=== PATIENT | female | born 1940 | race African-American/Black ===

== ENCOUNTER 2020-06-22 10:29 | Inpatient (IN) | payer MEDICARE, OTHER ==
[~2020-06-22] VITALS: Ht 149.9 cm; Wt 83.0 kg
[~2020-06-22 10:29] MED LIST: AMLO2.5T45 PO; ATOR40TA70 PO; COR3 PO; LOSA25TA26 PO; MELO-106 PO; RANI150T7 PO
[2020-06-22] MEDS ORDERED: AZITHROMYCIN 500 MG TABLET PO NR (11:45)
[2020-06-22] MEDS ORDERED: DEXAMETHASONE 4MG TABLET PO NR (11:45)
[2020-06-22 12:30] LABS: CHLORIDE 98 mEq/L (98-107)
[2020-06-22 12:31] LABS: BASOPHILS % 0.1 % (0.0-2.0); HEMATOCRIT. 36.5 % (36.0-48.0); HEMOGLOBIN. 12.8 g/dL (12.0-16.0); LYMPHOCYTES % 12.7 % (20.0-50.0); MEAN CORPUSCULAR HEMOGLOBIN 34.1 pg (28.0-32.0); MEAN CORPUSCULAR VOLUME 97.2 fL (81.0-99.0); MEAN PLATELET VOLUME 7.4 fl (7.4-10.4); MONOCYTES % 9.8 % (2.0-8.0); NEUTROPHILS % 77.4 % (40.0-76.0); PLATELET 207 x1000/uL (130-400); RED BLOOD CELL COUNT 3.75 mill/uL (4.2-5.4); RED CELL DISTRIBUTION WIDTH 15.4 % (11.6-14.6)
[2020-06-22 12:34] LABS: PROTHROMBIN TIME 10.9 sec (9.6-11.0)
[2020-06-23] MEDS ORDERED: DOCUSATE SODIUM 100MG CAPSULE PO PRN (01:15)
[2020-06-23] MEDS ORDERED: GUAIFENESIN 200MG/10ML SUGAR FREE UDC PO PRN (01:15)
[2020-06-23] MEDS ORDERED: ONDANSETRON HCL 4MG/2ML INJ IV PRN (01:15)
[2020-06-23] MEDS ORDERED: ACETAMINOPHEN 325MG TABLET PO PRN (01:15)
[2020-06-23] MEDS: IPRATROPIUM/ALBUTEROL 0.5-3(2.5)MG/3ML NEB HHN SCH ×4 (04:00→16:00)
[2020-06-23] MEDS: DEXT 5%/0.45% NACL 1000ML 1,000 ML IV SCH (04:00)
[2020-06-23] MEDS ORDERED: CEFTRIAXONE 1 G PREMIX 50 ML IV SCH (05:00)
[2020-06-23] MEDS: LEVOFLOXACIN 500MG PREMIX 100 ML IV SCH (08:00)
[2020-06-23] MEDS: METHYLPREDNISOLONE SOD SUCC 40 MG/ML VIAL IV SCH ×2 (08:00→14:30)
[2020-06-23] MEDS ORDERED: FUROSEMIDE 20MG TABLET PO SCH (09:00)
[2020-06-23] MEDS: ERGOCALCIFEROL 50000UNITS CAPSULE PO SCH (09:00)
[2020-06-23] MEDS: POTASSIUM CHLORIDE 10MEQ TABLET SR PO SCH ×2 (09:00→17:00)
[2020-06-23] MEDS: CARVEDILOL 3.125 MG TABLET PO SCH ×2 (09:00→21:00)
[2020-06-23] MEDS: ENOXAPARIN 30MG/0.3ML SYR SUBCUT SCH (09:00)
[2020-06-23] MEDS: ASCORBIC ACID 500 MG TABLET PO SCH (09:00)
[2020-06-23] MEDS: AMLODIPINE 5MG TABLET PO SCH (09:00)
[2020-06-23] MEDS: LOSARTAN POTASSIUM 25 MG TABLET PO SCH (10:00)
[2020-06-23] MEDS: MONTELUKAST SODIUM 10MG TABLET PO SCH (17:00)
[2020-06-23] MEDS: DIGOXIN 125MCG TABLET PO SCH (18:00)
[2020-06-23] MEDS ORDERED: ATORVASTATIN CALCIUM 40MG TABLET PO SCH (21:00)
[2020-06-24] MEDS: METHYLPREDNISOLONE SOD SUCC 40 MG/ML VIAL IV SCH ×4 (01:21→23:12)
[2020-06-24] MEDS: ASCORBIC ACID 500 MG TABLET PO SCH ×3 (01:21→23:09)
[2020-06-24 03:17] VITALS: BP 120/66
[2020-06-24 04:00] VITALS: BP 133/66
[2020-06-24 07:36] LABS: BG CARBOXYHEMOGLOBIN 0.3 % (0.5-1.5); BG DEOXYHEMOGLOBIN 9.6 % (0.0-5.0); BG FRACTION INSPIRED OXYGEN 36; BG HCO3 ACT 25.5 mmol/L (22.0-26.0); BG METHEMOGLOBIN 0.1 % (0.0-1.5); BG OXYGEN SATURATION 90.4 % (92.0-98.5); BG PCO2 32.5 mmHg (35.0-45.0); BG PH 7.513 (7.350-7.450); BG PO2 58.5 mmHg (75.0-100.0); BG SAMPLE SITE RIGHT RADIAL; BG TOTAL HEMOGLOBIN 12.8 g/dL (12.0-18.0); BG VENT MODE NASAL CANNULA
[2020-06-24 07:51] LABS: CHLORIDE 105 mEq/L (98-107)
[2020-06-24 08:00] VITALS: BP 115/61
[2020-06-24 08:00] LABS: BASOPHILS % 0.2 % (0.0-2.0); HEMATOCRIT. 36.5 % (36.0-48.0); HEMOGLOBIN. 12.6 g/dL (12.0-16.0); LYMPHOCYTES % 8.2 % (20.0-50.0); MEAN CORPUSCULAR HEMOGLOBIN 33.9 pg (28.0-32.0); MEAN CORPUSCULAR VOLUME 98.1 fL (81.0-99.0); MEAN PLATELET VOLUME 7.8 fl (7.4-10.4); MONOCYTES % 8.1 % (2.0-8.0); NEUTROPHILS % 83.5 % (40.0-76.0); PLATELET 261 x1000/uL (130-400); RED BLOOD CELL COUNT 3.72 mill/uL (4.2-5.4); RED CELL DISTRIBUTION WIDTH 15.3 % (11.6-14.6)
[2020-06-24 08:04] LABS: LDL CHOLESTEROL 137 mg/dL (5-100)
[2020-06-24 08:05] LABS: HDL CHOLESTEROL 73 mg/dL (40-59)
[2020-06-24 08:08] LABS: T4 FREE 1.14 ng/dL (0.76-1.46)
[2020-06-24] MEDS: AMLODIPINE 5MG TABLET PO SCH (09:00)
[2020-06-24] MEDS: POTASSIUM CHLORIDE 10MEQ TABLET SR PO SCH ×2 (09:42→17:00)
[2020-06-24] MEDS: LOSARTAN POTASSIUM 25 MG TABLET PO SCH (09:42)
[2020-06-24] MEDS: CARVEDILOL 3.125 MG TABLET PO SCH ×2 (09:42→23:10)
[2020-06-24] MEDS ORDERED: FUROSEMIDE 40MG TABLET PO NR (09:45)
[2020-06-24] MEDS: OMEPRAZOLE 20MG CAPSULE EXTENDED RELEASE PO SCH ×2 (10:55→11:00)
[2020-06-24] MEDS: ENOXAPARIN 30MG/0.3ML SYR SUBCUT SCH (10:55)
[2020-06-24] MEDS: MAGNESIUM/ALUMINUM HYDROXIDE/SIMETHICONE 30ML UDC PO PRN (10:55)
[2020-06-24] MEDS ORDERED: CEFTRIAXONE 1,000 MG in DEXTROSE 5% WATER 50 ML IV SCH (11:00)
[2020-06-24 12:00] VITALS: BP 111/54
[2020-06-24] MEDS: DOXYCYCLINE HYCLATE 100MG CAPSULE PO SCH ×2 (12:00→23:09)
[2020-06-24] MEDS ORDERED: LEVOFLOXACIN 500MG PREMIX 100 ML IV SCH (12:00)
[2020-06-24] MEDS: DEXT 5%/0.45% NACL 1000ML 1,000 ML IV SCH (15:49)
[2020-06-24] MEDS: LEVOFLOXACIN 500MG PREMIX 100 ML IV SCH (15:49)
[2020-06-24 16:00] VITALS: BP 105/49
[2020-06-24] MEDS: MONTELUKAST SODIUM 10MG TABLET PO SCH (17:00)
[2020-06-24] MEDS: DIGOXIN 125MCG TABLET PO SCH (18:00)
[2020-06-24 20:00] VITALS: BP 129/58
[2020-06-25] VITALS: BP 127/55
[2020-06-25 04:00] VITALS: BP 132/46
[2020-06-25] MEDS: OMEPRAZOLE 20MG CAPSULE EXTENDED RELEASE PO SCH (07:27)
[2020-06-25] MEDS: METHYLPREDNISOLONE SOD SUCC 40 MG/ML VIAL IV SCH ×3 (07:27→23:41)
[2020-06-25 08:00] VITALS: BP 93/58
[2020-06-25] MEDS: LOSARTAN POTASSIUM 25 MG TABLET PO SCH (09:00)
[2020-06-25] MEDS: CARVEDILOL 3.125 MG TABLET PO SCH ×2 (09:00→23:40)
[2020-06-25] MEDS: AMLODIPINE 5MG TABLET PO SCH (09:00)
[2020-06-25] MEDS: DOXYCYCLINE HYCLATE 100MG CAPSULE PO SCH ×2 (09:15→23:40)
[2020-06-25] MEDS: ASCORBIC ACID 500 MG TABLET PO SCH ×2 (09:15→23:41)
[2020-06-25] MEDS: DEXT 5%/0.45% NACL 1000ML 1,000 ML IV SCH ×3 (09:15→16:47)
[2020-06-25] MEDS: ENOXAPARIN 30MG/0.3ML SYR SUBCUT SCH (09:15)
[2020-06-25] MEDS: FUROSEMIDE 20MG TABLET PO SCH (09:26)
[2020-06-25] MEDS: POTASSIUM CHLORIDE 10MEQ TABLET SR PO SCH (09:27)
[2020-06-25 12:00] VITALS: BP 138/45
[2020-06-25 13:24] LABS: HEMATOCRIT. 37.3 % (36.0-48.0); HEMOGLOBIN. 12.5 g/dL (12.0-16.0); MEAN CORPUSCULAR HEMOGLOBIN 33.1 pg (28.0-32.0); MEAN CORPUSCULAR VOLUME 98.7 fL (81.0-99.0); MEAN PLATELET VOLUME 7.6 fl (7.4-10.4); PLATELET 246 x1000/uL (130-400); RED BLOOD CELL COUNT 3.78 mill/uL (4.2-5.4); RED CELL DISTRIBUTION WIDTH 14.9 % (11.6-14.6)
[2020-06-25 13:34] LABS: CHLORIDE 104 mEq/L (98-107)
[2020-06-25 16:00] VITALS: BP 128/57
[2020-06-25] MEDS: MONTELUKAST SODIUM 10MG TABLET PO SCH (16:50)
[2020-06-25] MEDS: DIGOXIN 125MCG TABLET PO SCH (17:01)
[2020-06-25 17:26] LABS: PLATELET ESTIMATE NORMAL
[2020-06-25 20:00] VITALS: BP 146/63
[2020-06-25] MEDS: ATORVASTATIN CALCIUM 40MG TABLET PO SCH (23:41)
[2020-06-26] VITALS: BP 112/33
[2020-06-26 04:00] VITALS: BP 124/51
[2020-06-26] MEDS: DEXT 5%/0.45% NACL 1000ML 1,000 ML IV SCH ×3 (06:48→21:07)
[2020-06-26] MEDS: FAMOTIDINE 20MG TABLET PO SCH (06:48)
[2020-06-26] MEDS: METHYLPREDNISOLONE SOD SUCC 40 MG/ML VIAL IV SCH ×3 (06:48→21:07)
[2020-06-26 07:32] LABS: BASOPHILS % 0.2 % (0.0-2.0); HEMATOCRIT. 33.1 % (36.0-48.0); HEMOGLOBIN. 11.3 g/dL (12.0-16.0); LYMPHOCYTES % 7.4 % (20.0-50.0); MEAN CORPUSCULAR HEMOGLOBIN 33.3 pg (28.0-32.0); MEAN CORPUSCULAR VOLUME 97.5 fL (81.0-99.0); MEAN PLATELET VOLUME 7.7 fl (7.4-10.4); MONOCYTES % 7.1 % (2.0-8.0); NEUTROPHILS % 85.3 % (40.0-76.0); PLATELET 237 x1000/uL (130-400); RED BLOOD CELL COUNT 3.39 mill/uL (4.2-5.4); RED CELL DISTRIBUTION WIDTH 14.6 % (11.6-14.6)
[2020-06-26 07:44] LABS: CHLORIDE 107 mEq/L (98-107)
[2020-06-26 08:00] VITALS: BP 124/40
[2020-06-26] MEDS: POTASSIUM CHLORIDE 10MEQ TABLET SR PO SCH (08:56)
[2020-06-26] MEDS: ENOXAPARIN 40MG/0.4ML SYR SUBCUT SCH (08:56)
[2020-06-26] MEDS: DOXYCYCLINE HYCLATE 100MG CAPSULE PO SCH ×2 (08:57→21:07)
[2020-06-26] MEDS: ASCORBIC ACID 500 MG TABLET PO SCH ×2 (08:57→21:07)
[2020-06-26] MEDS: LOSARTAN POTASSIUM 25 MG TABLET PO SCH (08:57)
[2020-06-26] MEDS: CARVEDILOL 3.125 MG TABLET PO SCH ×2 (08:57→21:00)
[2020-06-26] MEDS: AMLODIPINE 5MG TABLET PO SCH (08:57)
[2020-06-26] MEDS: FUROSEMIDE 20MG TABLET PO SCH (08:57)
[2020-06-26 12:00] VITALS: BP 117/48
[2020-06-26 16:00] VITALS: BP 127/61
[2020-06-26] MEDS: MONTELUKAST SODIUM 10MG TABLET PO SCH (16:16)
[2020-06-26] MEDS: DIGOXIN 125MCG TABLET PO SCH (17:01)
[2020-06-26 20:00] VITALS: BP 117/46
[2020-06-26] MEDS: ATORVASTATIN CALCIUM 40MG TABLET PO SCH (21:07)
[2020-06-26] MEDS: MAGNESIUM/ALUMINUM HYDROXIDE/SIMETHICONE 30ML UDC PO PRN (23:22)
[2020-06-26] MEDS: ALBUTEROL 6.7GM HFA INHALER ORI SCH (23:48)
[2020-06-27 00:27] VITALS: BP 123/46
[2020-06-27 04:00] VITALS: BP 129/47
[2020-06-27] MEDS: ALBUTEROL 6.7GM HFA INHALER ORI SCH ×4 (04:33→21:42)
[2020-06-27] MEDS: FAMOTIDINE 20MG TABLET PO SCH (05:55)
[2020-06-27] MEDS: METHYLPREDNISOLONE SOD SUCC 40 MG/ML VIAL IV SCH ×3 (05:55→21:43)
[2020-06-27 08:00] VITALS: BP 134/69
[2020-06-27] MEDS: DEXT 5%/0.45% NACL 1000ML 1,000 ML IV SCH ×2 (08:53→18:09)
[2020-06-27] MEDS: ENOXAPARIN 40MG/0.4ML SYR SUBCUT SCH (08:54)
[2020-06-27] MEDS: ASCORBIC ACID 500 MG TABLET PO SCH ×2 (08:54→21:43)
[2020-06-27] MEDS: LOSARTAN POTASSIUM 25 MG TABLET PO SCH (08:54)
[2020-06-27] MEDS: AMLODIPINE 5MG TABLET PO SCH (08:54)
[2020-06-27] MEDS: FUROSEMIDE 20MG TABLET PO SCH (08:54)
[2020-06-27] MEDS: DOXYCYCLINE HYCLATE 100MG CAPSULE PO SCH ×2 (08:54→21:43)
[2020-06-27] MEDS: CARVEDILOL 3.125 MG TABLET PO SCH ×2 (08:55→21:43)
[2020-06-27] MEDS: POTASSIUM CHLORIDE 10MEQ TABLET SR PO SCH (08:55)
[2020-06-27 09:57] LABS: HEMOGLOBIN. 13.1 g/dL (12.0-16.0); MEAN CORPUSCULAR HEMOGLOBIN 33.9 pg (28.0-32.0); MEAN CORPUSCULAR VOLUME 97.9 fL (81.0-99.0); MEAN PLATELET VOLUME 7.5 fl (7.4-10.4); PLATELET 273 x1000/uL (130-400); RED BLOOD CELL COUNT 3.88 mill/uL (4.2-5.4); RED CELL DISTRIBUTION WIDTH 14.8 % (11.6-14.6)
[2020-06-27 10:32] LABS: CHLORIDE 109 mEq/L (98-107)
[2020-06-27 12:00] VITALS: BP 125/56
[2020-06-27 16:00] VITALS: BP 102/46
[2020-06-27] MEDS: MONTELUKAST SODIUM 10MG TABLET PO SCH (16:26)
[2020-06-27] MEDS: BETHANECHOL CHLORIDE 25 MG TABLET PO SCH ×2 (16:28→17:02)
[2020-06-27] MEDS: GUAIFENESIN-DM 200MG-20MG/10ML UDC PO PRN ×2 (16:35→23:34)
[2020-06-27] MEDS: DIGOXIN 125MCG TABLET PO SCH (17:01)
[2020-06-27 20:00] VITALS: BP 127/53
[2020-06-27 21:29] LABS: CLARITY URINE CLEAR (CLEAR); COLOR URINE YELLOW (YELLOW); KETONES URINE NEGATIVE (NEGATIVE); LEUKOCYTE ESTERASE URINE NEGATIVE (NEGATIVE); NITRITE URINE NEGATIVE (NEGATIVE); OCCULT BLOOD URINE NEGATIVE (NEGATIVE); PH URINE 5.5 (4.5-8.0); PROTEIN URINE NEGATIVE (NEGATIVE); SPECIFIC GRAVITY URINE 1.009 (1.005-1.030); UROBILINOGEN URINE 0.2 E.U./dL (0.2-1.0)
[2020-06-27] MEDS: ATORVASTATIN CALCIUM 40MG TABLET PO SCH (21:43)
[2020-06-27 23:43] LABS: PLATELET ESTIMATE NORMAL
[2020-06-28] VITALS: BP 118/52
[2020-06-28] MEDS: ALBUTEROL 6.7GM HFA INHALER ORI SCH ×6 (01:17→21:28)
[2020-06-28] MEDS: DEXT 5%/0.45% NACL 1000ML 1,000 ML IV SCH ×2 (04:39→15:21)
[2020-06-28 06:00] VITALS: BP 135/52
[2020-06-28] MEDS: FAMOTIDINE 20MG TABLET PO SCH (07:02)
[2020-06-28] MEDS: METHYLPREDNISOLONE SOD SUCC 40 MG/ML VIAL IV SCH ×3 (07:02→21:27)
[2020-06-28 07:34] LABS: CHLORIDE 106 mEq/L (98-107)
[2020-06-28 07:57] LABS: HEMATOCRIT. 35.9 % (36.0-48.0); HEMOGLOBIN. 12.5 g/dL (12.0-16.0); MEAN CORPUSCULAR HEMOGLOBIN 33.6 pg (28.0-32.0); MEAN CORPUSCULAR VOLUME 96.8 fL (81.0-99.0); MEAN PLATELET VOLUME 7.3 fl (7.4-10.4); PLATELET 257 x1000/uL (130-400); RED BLOOD CELL COUNT 3.71 mill/uL (4.2-5.4); RED CELL DISTRIBUTION WIDTH 14.8 % (11.6-14.6)
[2020-06-28 08:00] VITALS: BP 124/74
[2020-06-28 09:10] LABS: ANGIOTENSION CONVERTING ENZYME 20 U/L (14-82)
[2020-06-28] MEDS: LOSARTAN POTASSIUM 25 MG TABLET PO SCH (09:51)
[2020-06-28] MEDS: AMLODIPINE 5MG TABLET PO SCH (09:51)
[2020-06-28] MEDS: FUROSEMIDE 20MG TABLET PO SCH (09:51)
[2020-06-28] MEDS: POTASSIUM CHLORIDE 10MEQ TABLET SR PO SCH (09:51)
[2020-06-28] MEDS: DOXYCYCLINE HYCLATE 100MG CAPSULE PO SCH ×2 (09:52→21:27)
[2020-06-28] MEDS: CARVEDILOL 3.125 MG TABLET PO SCH ×2 (09:52→21:27)
[2020-06-28] MEDS: BETHANECHOL CHLORIDE 25 MG TABLET PO SCH ×3 (09:52→18:42)
[2020-06-28 12:00] VITALS: BP 122/55
[2020-06-28] MEDS: ENOXAPARIN 40MG/0.4ML SYR SUBCUT SCH (12:40)
[2020-06-28] MEDS: GUAIFENESIN-DM 200MG-20MG/10ML UDC PO PRN (12:40)
[2020-06-28 15:06] LABS: PLATELET ESTIMATE NORMAL
[2020-06-28] MEDS: ASCORBIC ACID 500 MG TABLET PO SCH ×2 (15:18→21:27)
[2020-06-28 16:00] VITALS: BP 128/51
[2020-06-28] MEDS: DIGOXIN 125MCG TABLET PO SCH (18:42)
[2020-06-28] MEDS: MONTELUKAST SODIUM 10MG TABLET PO SCH (18:42)
[2020-06-28 20:00] VITALS: BP 124/47
[2020-06-28] MEDS: ATORVASTATIN CALCIUM 40MG TABLET PO SCH (21:27)
[2020-06-29] VITALS: BP 130/55
[2020-06-29] MEDS: DEXT 5%/0.45% NACL 1000ML 1,000 ML IV SCH ×3 (01:12→22:14)
[2020-06-29 04:00] VITALS: BP 108/51
[2020-06-29 04:07] LABS: ANTI-CARDIOLIPIN AB IGG < 9 GPL U/mL (0-14); ANTI-CARDIOLIPIN AB IGM < 9 MPL U/mL (0-12)
[2020-06-29] MEDS: ALBUTEROL 6.7GM HFA INHALER ORI SCH ×6 (05:19→21:46)
[2020-06-29] MEDS: FAMOTIDINE 20MG TABLET PO SCH (06:10)
[2020-06-29] MEDS: METHYLPREDNISOLONE SOD SUCC 40 MG/ML VIAL IV SCH ×3 (06:10→22:14)
[2020-06-29] MEDS: BETHANECHOL CHLORIDE 25 MG TABLET PO SCH (06:17)
[2020-06-29 07:36] LABS: CHLORIDE 109 mEq/L (98-107)
[2020-06-29 07:41] LABS: HEMATOCRIT. 40.9 % (36.0-48.0); HEMOGLOBIN. 13.9 g/dL (12.0-16.0); MEAN CORPUSCULAR HEMOGLOBIN 33.9 pg (28.0-32.0); MEAN CORPUSCULAR VOLUME 99.8 fL (81.0-99.0); MEAN PLATELET VOLUME 7.8 fl (7.4-10.4); PLATELET 249 x1000/uL (130-400); RED CELL DISTRIBUTION WIDTH 14.9 % (11.6-14.6)
[2020-06-29 08:00] VITALS: BP 148/66
[2020-06-29] MEDS: ENOXAPARIN 40MG/0.4ML SYR SUBCUT SCH (09:26)
[2020-06-29] MEDS: POTASSIUM CHLORIDE 10MEQ TABLET SR PO SCH (09:27)
[2020-06-29] MEDS: ASCORBIC ACID 500 MG TABLET PO SCH ×2 (09:27→21:49)
[2020-06-29] MEDS: FUROSEMIDE 20MG TABLET PO SCH (09:27)
[2020-06-29] MEDS: AMLODIPINE 5MG TABLET PO SCH (09:28)
[2020-06-29] MEDS: DOXYCYCLINE HYCLATE 100MG CAPSULE PO SCH ×2 (09:28→21:48)
[2020-06-29] MEDS: LOSARTAN POTASSIUM 25 MG TABLET PO SCH (09:28)
[2020-06-29] MEDS: CARVEDILOL 3.125 MG TABLET PO SCH ×2 (09:28→21:48)
[2020-06-29 12:00] VITALS: BP_SYST 107; BP_SYST 134; BP_SYST 140; BP_DIAS 48; BP_DIAS 51; BP_DIAS 61
[2020-06-29] MEDS ORDERED: VISCOUS LIDOCAINE 2% 15 ML UDC MM PRN (16:30)
[2020-06-29] MEDS: MONTELUKAST SODIUM 10MG TABLET PO SCH (17:55)
[2020-06-29] MEDS: DIGOXIN 125MCG TABLET PO SCH (17:55)
[2020-06-29 19:59] LABS: PLATELET ESTIMATE NORMAL
[2020-06-29 20:00] VITALS: BP 112/52
[2020-06-29] MEDS: ATORVASTATIN CALCIUM 40MG TABLET PO SCH (21:49)
[2020-06-29] MEDS: ACYCLOVIR 400 MG TABLET PO SCH (22:15)
[2020-06-30] VITALS: BP 109/51
[2020-06-30] MEDS: ALBUTEROL 6.7GM HFA INHALER ORI SCH ×7 (00:09→22:47)
[2020-06-30] MEDS: DEXT 5%/0.45% NACL 1000ML 1,000 ML IV SCH ×2 (00:09→12:12)
[2020-06-30 04:00] VITALS: BP 108/49
[2020-06-30] MEDS: ACYCLOVIR 400 MG TABLET PO SCH ×4 (05:23→17:16)
[2020-06-30] MEDS: METHYLPREDNISOLONE SOD SUCC 40 MG/ML VIAL IV SCH ×3 (05:23→22:48)
[2020-06-30] MEDS: FAMOTIDINE 20MG TABLET PO SCH (05:23)
[2020-06-30] MEDS: BETHANECHOL CHLORIDE 25 MG TABLET PO SCH (05:23)
[2020-06-30 08:00] VITALS: BP 124/52
[2020-06-30] MEDS: ASCORBIC ACID 500 MG TABLET PO SCH ×2 (08:33→22:49)
[2020-06-30] MEDS: AMLODIPINE 5MG TABLET PO SCH (08:33)
[2020-06-30] MEDS: DOXYCYCLINE HYCLATE 100MG CAPSULE PO SCH ×2 (08:34→22:49)
[2020-06-30] MEDS: LOSARTAN POTASSIUM 25 MG TABLET PO SCH (08:34)
[2020-06-30] MEDS: FUROSEMIDE 20MG TABLET PO SCH (08:34)
[2020-06-30] MEDS: POTASSIUM CHLORIDE 10MEQ TABLET SR PO SCH (08:34)
[2020-06-30] MEDS: CARVEDILOL 3.125 MG TABLET PO SCH ×2 (08:34→22:48)
[2020-06-30] MEDS: ENOXAPARIN 40MG/0.4ML SYR SUBCUT SCH (08:35)
[2020-06-30] MEDS: ERGOCALCIFEROL 50000UNITS CAPSULE PO SCH (08:38)
[2020-06-30 12:00] VITALS: BP 128/50
[2020-06-30] MEDS: MONTELUKAST SODIUM 10MG TABLET PO SCH (16:36)
[2020-06-30] MEDS: DIGOXIN 125MCG TABLET PO SCH (17:16)
[2020-06-30 20:00] VITALS: BP 129/56
[2020-06-30] MEDS: ATORVASTATIN CALCIUM 40MG TABLET PO SCH (22:49)
[2020-07-01 00:08] VITALS: BP 132/58
[2020-07-01] MEDS: DEXT 5%/0.45% NACL 1000ML 1,000 ML IV SCH ×2 (01:42→13:59)
[2020-07-01 04:00] VITALS: BP 126/41
[2020-07-01] MEDS: ALBUTEROL 6.7GM HFA INHALER ORI SCH ×6 (04:00→20:11)
[2020-07-01] MEDS: ACYCLOVIR 400 MG TABLET PO SCH ×5 (06:25→21:19)
[2020-07-01] MEDS: METHYLPREDNISOLONE SOD SUCC 40 MG/ML VIAL IV SCH ×3 (06:25→21:19)
[2020-07-01] MEDS: BETHANECHOL CHLORIDE 25 MG TABLET PO SCH (06:26)
[2020-07-01] MEDS: FAMOTIDINE 20MG TABLET PO SCH (06:26)
[2020-07-01 07:59] VITALS: BP 132/42
[2020-07-01] MEDS: AMLODIPINE 5MG TABLET PO SCH (08:09)
[2020-07-01] MEDS: FUROSEMIDE 20MG TABLET PO SCH (08:09)
[2020-07-01] MEDS: CARVEDILOL 3.125 MG TABLET PO SCH ×2 (08:09→20:12)
[2020-07-01] MEDS: ENOXAPARIN 40MG/0.4ML SYR SUBCUT SCH (08:09)
[2020-07-01] MEDS: POTASSIUM CHLORIDE 10MEQ TABLET SR PO SCH (08:10)
[2020-07-01] MEDS: ASCORBIC ACID 500 MG TABLET PO SCH ×2 (08:10→20:11)
[2020-07-01] MEDS: LOSARTAN POTASSIUM 25 MG TABLET PO SCH (08:10)
[2020-07-01] MEDS: DOXYCYCLINE HYCLATE 100MG CAPSULE PO SCH (08:12)
[2020-07-01 12:00] VITALS: BP 124/55
[2020-07-01 16:00] VITALS: BP 122/44
[2020-07-01] MEDS: MONTELUKAST SODIUM 10MG TABLET PO SCH (16:48)
[2020-07-01] MEDS: DIGOXIN 125MCG TABLET PO SCH (17:11)
[2020-07-01 20:00] VITALS: BP 124/43
[2020-07-01] MEDS: ATORVASTATIN CALCIUM 40MG TABLET PO SCH (20:11)
[2020-07-02] VITALS: BP 122/51
[2020-07-02] MEDS: ALBUTEROL 6.7GM HFA INHALER ORI SCH ×6 (00:21→20:04)
[2020-07-02 04:00] VITALS: BP 156/65
[2020-07-02] MEDS: DEXT 5%/0.45% NACL 1000ML 1,000 ML IV SCH ×2 (04:05→18:36)
[2020-07-02] MEDS: METHYLPREDNISOLONE SOD SUCC 40 MG/ML VIAL IV SCH ×2 (05:54→14:48)
[2020-07-02] MEDS: ACYCLOVIR 400 MG TABLET PO SCH ×3 (05:54→14:48)
[2020-07-02] MEDS: FAMOTIDINE 20MG TABLET PO SCH (05:54)
[2020-07-02] MEDS: BETHANECHOL CHLORIDE 25 MG TABLET PO SCH (06:12)
[2020-07-02 08:00] VITALS: BP 126/47
[2020-07-02 08:32] LABS: HEMATOCRIT. 35.9 % (36.0-48.0); HEMOGLOBIN. 12.6 g/dL (12.0-16.0); MEAN CORPUSCULAR HEMOGLOBIN 33.8 pg (28.0-32.0); MEAN CORPUSCULAR VOLUME 96.8 fL (81.0-99.0); MEAN PLATELET VOLUME 7.6 fl (7.4-10.4); PLATELET 259 x1000/uL (130-400); RED BLOOD CELL COUNT 3.71 mill/uL (4.2-5.4); RED CELL DISTRIBUTION WIDTH 14.9 % (11.6-14.6)
[2020-07-02 09:03] LABS: CHLORIDE 105 mEq/L (98-107)
[2020-07-02] MEDS: AMLODIPINE 5MG TABLET PO SCH (09:51)
[2020-07-02] MEDS: ENOXAPARIN 40MG/0.4ML SYR SUBCUT SCH (09:51)
[2020-07-02] MEDS: LOSARTAN POTASSIUM 25 MG TABLET PO SCH (09:51)
[2020-07-02] MEDS: CARVEDILOL 3.125 MG TABLET PO SCH ×2 (09:51→20:29)
[2020-07-02] MEDS: POTASSIUM CHLORIDE 10MEQ TABLET SR PO SCH (09:51)
[2020-07-02] MEDS: FUROSEMIDE 20MG TABLET PO SCH (09:51)
[2020-07-02] MEDS: BENZONATATE 100MG CAPSULE PO SCH ×2 (11:55→18:31)
[2020-07-02] MEDS: ASCORBIC ACID 500 MG TABLET PO SCH ×2 (11:55→20:28)
[2020-07-02 12:00] VITALS: BP 136/61
[2020-07-02 14:28] LABS: PLATELET ESTIMATE NORMAL
[2020-07-02 16:00] VITALS: BP 153/64
[2020-07-02] MEDS: MONTELUKAST SODIUM 10MG TABLET PO SCH (18:31)
[2020-07-02] MEDS: DIGOXIN 125MCG TABLET PO SCH (18:32)
[2020-07-02 20:00] VITALS: BP 126/48
[2020-07-02] MEDS: ATORVASTATIN CALCIUM 40MG TABLET PO SCH (20:29)
[2020-07-03 00:01] VITALS: BP 110/52
[2020-07-03] MEDS: METHYLPREDNISOLONE SOD SUCC 40 MG/ML VIAL IV SCH ×4 (00:23→21:53)
[2020-07-03] MEDS: ALBUTEROL 6.7GM HFA INHALER ORI SCH ×6 (00:23→21:53)
[2020-07-03] MEDS: BENZONATATE 100MG CAPSULE PO SCH ×3 (03:10→17:52)
[2020-07-03 04:00] VITALS: BP 112/62
[2020-07-03] MEDS: BETHANECHOL CHLORIDE 25 MG TABLET PO SCH (06:07)
[2020-07-03] MEDS: DEXT 5%/0.45% NACL 1000ML 1,000 ML IV SCH (06:07)
[2020-07-03] MEDS: FAMOTIDINE 20MG TABLET PO SCH (06:09)
[2020-07-03 08:00] VITALS: BP 146/63
[2020-07-03] MEDS: ASCORBIC ACID 500 MG TABLET PO SCH ×2 (09:24→21:52)
[2020-07-03] MEDS: LOSARTAN POTASSIUM 25 MG TABLET PO SCH (09:25)
[2020-07-03] MEDS: POTASSIUM CHLORIDE 10MEQ TABLET SR PO SCH ×2 (09:25→21:51)
[2020-07-03] MEDS: CARVEDILOL 3.125 MG TABLET PO SCH ×2 (09:25→21:52)
[2020-07-03] MEDS: FUROSEMIDE 20MG TABLET PO SCH (09:25)
[2020-07-03] MEDS: GUAIFENESIN-DM 200MG-20MG/10ML UDC PO PRN (09:26)
[2020-07-03] MEDS: ENOXAPARIN 40MG/0.4ML SYR SUBCUT SCH (09:26)
[2020-07-03] MEDS: AMLODIPINE 5MG TABLET PO SCH (09:26)
[2020-07-03 11:56] LABS: BG BASE EXCESS -1.7 mmol/L (-2.0-2.0); BG CARBOXYHEMOGLOBIN 0.2 % (0.5-1.5); BG DEOXYHEMOGLOBIN 9.5 % (0.0-5.0); BG HCO3 ACT 21.5 mmol/L (22.0-26.0); BG METHEMOGLOBIN 0.3 % (0.0-1.5); BG OXYGEN SATURATION 90.5 % (92.0-98.5); BG PCO2 32.2 mmHg (35.0-45.0); BG PH 7.442 (7.350-7.450); BG PO2 60.5 mmHg (75.0-100.0); BG SAMPLE SITE RIGHT RADIAL; BG TOTAL HEMOGLOBIN 13.9 g/dL (12.0-18.0); BG VENT MODE MASK - NRB
[2020-07-03 12:00] VITALS: BP 126/54
[2020-07-03] MEDS ORDERED: FUROSEMIDE 40MG/4ML VIAL IVP SCH (12:45)
[2020-07-03 16:00] VITALS: BP 125/58
[2020-07-03] MEDS: MONTELUKAST SODIUM 10MG TABLET PO SCH (17:52)
[2020-07-03] MEDS: DIGOXIN 125MCG TABLET PO SCH (17:52)
[2020-07-03 20:00] VITALS: BP 119/62
[2020-07-03] MEDS: ATORVASTATIN CALCIUM 40MG TABLET PO SCH (21:52)
[2020-07-03] MEDS: FUROSEMIDE 40MG/4ML VIAL IVP SCH (22:29)
[2020-07-04] VITALS: BP 104/53
[2020-07-04] MEDS: ALBUTEROL 6.7GM HFA INHALER ORI SCH ×6 (02:56→20:25)
[2020-07-04] MEDS: BENZONATATE 100MG CAPSULE PO SCH ×3 (02:56→18:51)
[2020-07-04 04:00] VITALS: BP 117/54
[2020-07-04 06:24] LABS: HEMATOCRIT. 39.5 % (36.0-48.0); HEMOGLOBIN. 14.2 g/dL (12.0-16.0); MEAN CORPUSCULAR HEMOGLOBIN 34.2 pg (28.0-32.0); MEAN CORPUSCULAR VOLUME 95.1 fL (81.0-99.0); MEAN PLATELET VOLUME 8.2 fl (7.4-10.4); PLATELET 236 x1000/uL (130-400); RED BLOOD CELL COUNT 4.15 mill/uL (4.2-5.4); RED CELL DISTRIBUTION WIDTH 15.2 % (11.6-14.6)
[2020-07-04] MEDS: FUROSEMIDE 40MG/4ML VIAL IVP SCH ×2 (06:55→18:52)
[2020-07-04] MEDS: BETHANECHOL CHLORIDE 25 MG TABLET PO SCH (06:55)
[2020-07-04] MEDS: METHYLPREDNISOLONE SOD SUCC 40 MG/ML VIAL IV SCH ×3 (06:55→21:43)
[2020-07-04] MEDS: FAMOTIDINE 20MG TABLET PO SCH (06:56)
[2020-07-04 07:16] LABS: CHLORIDE 101 mEq/L (98-107)
[2020-07-04 08:00] VITALS: BP 104/53
[2020-07-04] MEDS: LOSARTAN POTASSIUM 25 MG TABLET PO SCH (08:18)
[2020-07-04] MEDS: CARVEDILOL 3.125 MG TABLET PO SCH ×2 (08:18→21:43)
[2020-07-04] MEDS: AMLODIPINE 5MG TABLET PO SCH (08:19)
[2020-07-04] MEDS: ASCORBIC ACID 500 MG TABLET PO SCH ×2 (08:24→20:25)
[2020-07-04] MEDS: POTASSIUM CHLORIDE 10MEQ TABLET SR PO SCH ×4 (08:24→20:26)
[2020-07-04] MEDS: ENOXAPARIN 40MG/0.4ML SYR SUBCUT SCH (08:25)
[2020-07-04 12:00] VITALS: BP 105/56
[2020-07-04 16:00] VITALS: BP 127/56
[2020-07-04 17:37] LABS: BG BASE EXCESS 4.6 mmol/L (-2.0-2.0); BG CARBOXYHEMOGLOBIN 0.3 % (0.5-1.5); BG DEOXYHEMOGLOBIN 19.4 % (0.0-5.0); BG HCO3 ACT 27.2 mmol/L (22.0-26.0); BG METHEMOGLOBIN 0.1 % (0.0-1.5); BG OXYGEN SATURATION 80.5 % (92.0-98.5); BG OXYHEMOGLOBIN 80.2 % (94.0-97.0); BG PCO2 34.4 mmHg (35.0-45.0); BG PH 7.516 (7.350-7.450); BG PO2 42.5 mmHg (75.0-100.0); BG SAMPLE SITE RIGHT RADIAL; BG TOTAL HEMOGLOBIN 15.3 g/dL (12.0-18.0); BG VENT MODE MASK - BIPAP
[2020-07-04] MEDS: DIGOXIN 125MCG TABLET PO SCH (18:51)
[2020-07-04] MEDS: MONTELUKAST SODIUM 10MG TABLET PO SCH (18:52)
[2020-07-04 20:00] VITALS: BP 129/78
[2020-07-04] MEDS: HYDROXYZINE 25MG TABLET PO PRN (20:17)
[2020-07-04] MEDS: ATORVASTATIN CALCIUM 40MG TABLET PO SCH (20:25)
[2020-07-04 21:46] LABS: PLATELET ESTIMATE NORMAL
[2020-07-05 00:05] VITALS: BP 136/80
[2020-07-05] MEDS: ALBUTEROL 6.7GM HFA INHALER ORI SCH ×6 (00:08→21:45)
[2020-07-05] MEDS ORDERED: KCL 20MEQ/100ML PREMIX 100 ML IV NR (01:00)
[2020-07-05] MEDS: HYDROXYZINE 25MG TABLET PO PRN ×3 (01:43→18:14)
[2020-07-05] MEDS: BENZONATATE 100MG CAPSULE PO SCH ×2 (03:00→11:00)
[2020-07-05 04:00] VITALS: BP 140/61
[2020-07-05] MEDS: FAMOTIDINE 20MG TABLET PO SCH (06:39)
[2020-07-05] MEDS: FUROSEMIDE 40MG/4ML VIAL IVP SCH ×2 (06:39→18:17)
[2020-07-05] MEDS: BETHANECHOL CHLORIDE 25 MG TABLET PO SCH (06:39)
[2020-07-05] MEDS: METHYLPREDNISOLONE SOD SUCC 40 MG/ML VIAL IV SCH ×3 (06:41→21:45)
[2020-07-05 09:04] LABS: HEMATOCRIT. 43.5 % (36.0-48.0); HEMOGLOBIN. 15.1 g/dL (12.0-16.0); MEAN CORPUSCULAR HEMOGLOBIN 33.4 pg (28.0-32.0); MEAN CORPUSCULAR VOLUME 96.2 fL (81.0-99.0); MEAN PLATELET VOLUME 8.1 fl (7.4-10.4); PLATELET 224 x1000/uL (130-400); RED BLOOD CELL COUNT 4.52 mill/uL (4.2-5.4); RED CELL DISTRIBUTION WIDTH 15.2 % (11.6-14.6)
[2020-07-05 09:17] LABS: CHLORIDE 103 mEq/L (98-107)
[2020-07-05] MEDS: AMLODIPINE 5MG TABLET PO SCH (09:24)
[2020-07-05] MEDS: POTASSIUM CHLORIDE 10MEQ TABLET SR PO SCH ×2 (09:24→17:00)
[2020-07-05] MEDS: ASCORBIC ACID 500 MG TABLET PO SCH ×2 (09:24→21:47)
[2020-07-05] MEDS: CARVEDILOL 3.125 MG TABLET PO SCH ×2 (09:25→21:00)
[2020-07-05] MEDS: LOSARTAN POTASSIUM 25 MG TABLET PO SCH (09:25)
[2020-07-05 12:36] VITALS: BP 118/51
[2020-07-05] MEDS: ENOXAPARIN 40MG/0.4ML SYR SUBCUT SCH (15:45)
[2020-07-05 17:06] VITALS: BP 125/56
[2020-07-05] MEDS: MONTELUKAST SODIUM 10MG TABLET PO SCH (18:14)
[2020-07-05] MEDS: DIGOXIN 125MCG TABLET PO SCH (18:14)
[2020-07-05 20:00] VITALS: BP 104/53
[2020-07-05] MEDS: ATORVASTATIN CALCIUM 40MG TABLET PO SCH (21:47)
[2020-07-05 22:44] LABS: PLATELET ESTIMATE NORMAL
[2020-07-06] MEDS: HYDROXYZINE 25MG TABLET PO PRN (00:04)
[2020-07-06] MEDS: ALBUTEROL 6.7GM HFA INHALER ORI SCH ×6 (00:05→21:20)
[2020-07-06 04:00] VITALS: BP 125/55
[2020-07-06 06:11] LABS: HEMATOCRIT. 38.7 % (36.0-48.0); HEMOGLOBIN. 13.7 g/dL (12.0-16.0); MEAN CORPUSCULAR HEMOGLOBIN 33.6 pg (28.0-32.0); MEAN CORPUSCULAR VOLUME 95.2 fL (81.0-99.0); PLATELET 217 x1000/uL (130-400); RED BLOOD CELL COUNT 4.07 mill/uL (4.2-5.4); RED CELL DISTRIBUTION WIDTH 15.2 % (11.6-14.6)
[2020-07-06] MEDS: BETHANECHOL CHLORIDE 25 MG TABLET PO SCH (06:14)
[2020-07-06] MEDS: FUROSEMIDE 40MG/4ML VIAL IVP SCH ×2 (06:14→19:22)
[2020-07-06] MEDS: FAMOTIDINE 20MG TABLET PO SCH (06:14)
[2020-07-06] MEDS: METHYLPREDNISOLONE SOD SUCC 40 MG/ML VIAL IV SCH ×3 (06:14→21:17)
[2020-07-06 07:44] LABS: CHLORIDE 100 mEq/L (98-107)
[2020-07-06 08:00] VITALS: BP 127/52
[2020-07-06] MEDS ORDERED: POTASSIUM CHLORIDE 10MEQ TABLET SR PO SCH (09:00)
[2020-07-06] MEDS: AMLODIPINE 5MG TABLET PO SCH (09:34)
[2020-07-06] MEDS: CARVEDILOL 3.125 MG TABLET PO SCH ×2 (09:34→21:20)
[2020-07-06] MEDS: ENOXAPARIN 40MG/0.4ML SYR SUBCUT SCH (09:35)
[2020-07-06] MEDS: LOSARTAN POTASSIUM 25 MG TABLET PO SCH (09:39)
[2020-07-06] MEDS: ASCORBIC ACID 500 MG TABLET PO SCH ×2 (09:39→21:17)
[2020-07-06] MEDS: POTASSIUM CHLORIDE 10MEQ TABLET SR PO SCH ×2 (09:39→19:23)
[2020-07-06 12:00] VITALS: BP 99/49
[2020-07-06 16:00] VITALS: BP 132/68
[2020-07-06 18:25] LABS: PLATELET ESTIMATE NORMAL
[2020-07-06] MEDS: DIGOXIN 125MCG TABLET PO SCH (19:23)
[2020-07-06] MEDS: MONTELUKAST SODIUM 10MG TABLET PO SCH (19:30)
[2020-07-06 20:00] VITALS: BP 105/49
[2020-07-06] MEDS: ATORVASTATIN CALCIUM 40MG TABLET PO SCH (21:17)
[2020-07-07] MEDS: ALBUTEROL 6.7GM HFA INHALER ORI SCH ×6 (00:07→21:48)
[2020-07-07 00:37] VITALS: BP 103/49
[2020-07-07 04:00] VITALS: BP 109/53
[2020-07-07] MEDS: FUROSEMIDE 40MG/4ML VIAL IVP SCH ×2 (05:59→17:40)
[2020-07-07] MEDS: BETHANECHOL CHLORIDE 25 MG TABLET PO SCH (06:00)
[2020-07-07] MEDS: FAMOTIDINE 20MG TABLET PO SCH (06:00)
[2020-07-07] MEDS: METHYLPREDNISOLONE SOD SUCC 40 MG/ML VIAL IV SCH ×3 (06:00→22:36)
[2020-07-07 06:49] LABS: CHLORIDE 99 mEq/L (98-107)
[2020-07-07 08:00] VITALS: BP 127/54
[2020-07-07] MEDS: POTASSIUM CHLORIDE 10MEQ TABLET SR PO SCH ×2 (08:41→17:40)
[2020-07-07] MEDS: ASCORBIC ACID 500 MG TABLET PO SCH ×2 (08:41→22:37)
[2020-07-07] MEDS: ENOXAPARIN 40MG/0.4ML SYR SUBCUT SCH (08:41)
[2020-07-07] MEDS: LOSARTAN POTASSIUM 25 MG TABLET PO SCH (08:41)
[2020-07-07] MEDS: ERGOCALCIFEROL 50000UNITS CAPSULE PO SCH (08:42)
[2020-07-07] MEDS: CARVEDILOL 3.125 MG TABLET PO SCH ×2 (08:42→21:00)
[2020-07-07] MEDS: AMLODIPINE 5MG TABLET PO SCH (08:42)
[2020-07-07 12:00] VITALS: BP 101/50
[2020-07-07 16:00] VITALS: BP 116/47
[2020-07-07] MEDS: MONTELUKAST SODIUM 10MG TABLET PO SCH (17:40)
[2020-07-07] MEDS: DIGOXIN 125MCG TABLET PO SCH (17:40)
[2020-07-07 20:00] VITALS: BP 140/40
[2020-07-07] MEDS: ATORVASTATIN CALCIUM 40MG TABLET PO SCH (22:36)
[2020-07-08] VITALS: BP 104/41
[2020-07-08] MEDS: ALBUTEROL 6.7GM HFA INHALER ORI SCH ×6 (00:26→22:34)
[2020-07-08 04:00] VITALS: BP 121/48
[2020-07-08] MEDS: FAMOTIDINE 20MG TABLET PO SCH (06:25)
[2020-07-08] MEDS: FUROSEMIDE 40MG/4ML VIAL IVP SCH (06:25)
[2020-07-08] MEDS: METHYLPREDNISOLONE SOD SUCC 40 MG/ML VIAL IV SCH ×3 (06:25→22:34)
[2020-07-08] MEDS: BETHANECHOL CHLORIDE 25 MG TABLET PO SCH (06:25)
[2020-07-08 06:39] LABS: HEMATOCRIT. 37.1 % (36.0-48.0); HEMOGLOBIN. 12.9 g/dL (12.0-16.0); MEAN CORPUSCULAR HEMOGLOBIN 33.9 pg (28.0-32.0); MEAN CORPUSCULAR VOLUME 97.2 fL (81.0-99.0); MEAN PLATELET VOLUME 8.3 fl (7.4-10.4); PLATELET 168 x1000/uL (130-400); RED BLOOD CELL COUNT 3.82 mill/uL (4.2-5.4); RED CELL DISTRIBUTION WIDTH 15.3 % (11.6-14.6)
[2020-07-08 06:46] LABS: CHLORIDE 101 mEq/L (98-107)
[2020-07-08 08:00] VITALS: BP 113/53
[2020-07-08] MEDS: ASCORBIC ACID 500 MG TABLET PO SCH ×2 (09:00→22:34)
[2020-07-08] MEDS: POTASSIUM CHLORIDE 10MEQ TABLET SR PO SCH ×2 (09:44→18:02)
[2020-07-08] MEDS: AMLODIPINE 5MG TABLET PO SCH (09:44)
[2020-07-08] MEDS: ENOXAPARIN 40MG/0.4ML SYR SUBCUT SCH (09:44)
[2020-07-08] MEDS: LOSARTAN POTASSIUM 25 MG TABLET PO SCH (09:44)
[2020-07-08] MEDS: HYDROXYZINE 25MG TABLET PO PRN ×2 (09:45→22:33)
[2020-07-08] MEDS: CARVEDILOL 3.125 MG TABLET PO SCH ×2 (09:45→21:00)
[2020-07-08 12:00] VITALS: BP 140/73
[2020-07-08 14:16] LABS: PLATELET ESTIMATE NORMAL
[2020-07-08 16:00] VITALS: BP 136/54
[2020-07-08] MEDS: MONTELUKAST SODIUM 10MG TABLET PO SCH (18:02)
[2020-07-08] MEDS: DIGOXIN 125MCG TABLET PO SCH (18:03)
[2020-07-08 20:00] VITALS: BP 92/51
[2020-07-08] MEDS: ATORVASTATIN CALCIUM 40MG TABLET PO SCH (22:33)
[2020-07-09] VITALS: BP 122/49
[2020-07-09] MEDS: ALBUTEROL 6.7GM HFA INHALER ORI SCH ×7 (02:34→21:20)
[2020-07-09 04:00] VITALS: BP 90/39
[2020-07-09] MEDS: FAMOTIDINE 20MG TABLET PO SCH (06:16)
[2020-07-09] MEDS: BETHANECHOL CHLORIDE 25 MG TABLET PO SCH (06:16)
[2020-07-09] MEDS: METHYLPREDNISOLONE SOD SUCC 40 MG/ML VIAL IV SCH ×2 (06:16→14:07)
[2020-07-09 08:00] VITALS: BP 108/53
[2020-07-09] MEDS: ENOXAPARIN 40MG/0.4ML SYR SUBCUT SCH (08:45)
[2020-07-09] MEDS: POTASSIUM CHLORIDE 10MEQ TABLET SR PO SCH ×2 (08:45→18:43)
[2020-07-09] MEDS: FUROSEMIDE 40MG/4ML VIAL IVP SCH (08:46)
[2020-07-09] MEDS: ASCORBIC ACID 500 MG TABLET PO SCH (08:46)
[2020-07-09] MEDS: AMLODIPINE 5MG TABLET PO SCH (08:47)
[2020-07-09] MEDS: HYDROXYZINE 25MG TABLET PO PRN (08:48)
[2020-07-09] MEDS: LOSARTAN POTASSIUM 25 MG TABLET PO SCH (08:48)
[2020-07-09] MEDS: CARVEDILOL 3.125 MG TABLET PO SCH ×2 (08:48→21:00)
[2020-07-09 12:00] VITALS: BP 118/38
[2020-07-09] MEDS ORDERED: SODIUM CHLORIDE 0.9% 1,000 ML IV SCH ×2 (15:45→16:00)
[2020-07-09 16:00] VITALS: BP 61/28
[2020-07-09] MEDS ORDERED: DEXT 5%/0.9% NACL 1,000 ML IV SCH (16:30)
[2020-07-09] MEDS: DIGOXIN 125MCG TABLET PO SCH (18:43)
[2020-07-09] MEDS: MONTELUKAST SODIUM 10MG TABLET PO SCH (18:43)
[2020-07-09 20:00] VITALS: BP 164/47
[2020-07-10] VITALS (13 sets, daily range): BP systolic 60–178; BP diastolic 35–99
[2020-07-10] MEDS ORDERED: DIPHENHYDRAMINE 50MG/ML VIAL IV PRN
[2020-07-10] MEDS: ALBUTEROL 6.7GM HFA INHALER ORI SCH ×5 (02:11→14:20)
[2020-07-10] MEDS: METHYLPREDNISOLONE SOD SUCC 40 MG/ML VIAL IV SCH ×4 (02:11→22:15)
[2020-07-10] MEDS: ATORVASTATIN CALCIUM 40MG TABLET PO SCH ×2 (02:12→22:16)
[2020-07-10] MEDS: ASCORBIC ACID 500 MG TABLET PO SCH ×3 (02:12→22:16)
[2020-07-10] MEDS: BETHANECHOL CHLORIDE 25 MG TABLET PO SCH (06:12)
[2020-07-10] MEDS: FAMOTIDINE 20MG TABLET PO SCH (06:12)
[2020-07-10] MEDS ORDERED: LIDOCAINE HCL 1% 20ML VIAL (Pyxis) INJ ONE (08:22)
[2020-07-10 08:30] LABS: HEMOGLOBIN. 14.3 g/dL (12.0-16.0); MEAN CORPUSCULAR HEMOGLOBIN 33.7 pg (28.0-32.0); MEAN CORPUSCULAR VOLUME 99.1 fL (81.0-99.0); MEAN PLATELET VOLUME 8.6 fl (7.4-10.4); PLATELET 132 x1000/uL (130-400); RED BLOOD CELL COUNT 4.23 mill/uL (4.2-5.4); RED CELL DISTRIBUTION WIDTH 15.5 % (11.6-14.6)
[2020-07-10] MEDS: FUROSEMIDE 40MG/4ML VIAL IVP SCH (09:00)
[2020-07-10] MEDS: LOSARTAN POTASSIUM 25 MG TABLET PO SCH (09:00)
[2020-07-10] MEDS: CARVEDILOL 3.125 MG TABLET PO SCH ×2 (09:00→22:16)
[2020-07-10] MEDS: AMLODIPINE 5MG TABLET PO SCH (09:00)
[2020-07-10] MEDS: POTASSIUM CHLORIDE 10MEQ TABLET SR PO SCH ×2 (09:00→17:00)
[2020-07-10] MEDS: ENOXAPARIN 40MG/0.4ML SYR SUBCUT SCH (09:27)
[2020-07-10 09:30] LABS: CHLORIDE 109 mEq/L (98-107)
[2020-07-10] MEDS: DEXT 5%/0.9% NACL 1,000 ML IV SCH (15:28)
[2020-07-10] MEDS ORDERED: SODIUM CHLORIDE 0.9% 1,000 ML IV ONE (16:00)
[2020-07-10] MEDS: MONTELUKAST SODIUM 10MG TABLET PO SCH (17:00)
[2020-07-10] MEDS: DIGOXIN 125MCG TABLET PO SCH (17:35)
[2020-07-10 18:20] LABS: PLATELET ESTIMATE NORMAL
[2020-07-10 21:45] LABS: HEMATOCRIT. 41.3 % (36.0-48.0); MEAN CORPUSCULAR HEMOGLOBIN 33.5 pg (28.0-32.0); MEAN CORPUSCULAR VOLUME 98.8 fL (81.0-99.0); MEAN PLATELET VOLUME 8.8 fl (7.4-10.4); PLATELET 112 x1000/uL (130-400); RED BLOOD CELL COUNT 4.18 mill/uL (4.2-5.4); RED CELL DISTRIBUTION WIDTH 15.1 % (11.6-14.6)
[2020-07-10 22:16] LABS: PLATELET ESTIMATE DECREASED
[2020-07-10 22:59] LABS: BG BASE EXCESS 2.1 mmol/L (-2.0-2.0); BG CARBOXYHEMOGLOBIN 0.2 % (0.5-1.5); BG FRACTION INSPIRED OXYGEN 100; BG HCO3 ACT 26.3 mmol/L (22.0-26.0); BG METHEMOGLOBIN 0.2 % (0.0-1.5); BG OXYGEN SATURATION 86.9 % (92.0-98.5); BG OXYHEMOGLOBIN 86.6 % (94.0-97.0); BG PCO2 39.4 mmHg (35.0-45.0); BG PH 7.442 (7.350-7.450); BG PO2 54.7 mmHg (75.0-100.0); BG TOTAL HEMOGLOBIN 14.3 g/dL (12.0-18.0); BG VENT MODE MASK - CPAP
[2020-07-11] VITALS (52 sets, daily range): BP systolic 84–172; BP diastolic 35–108
[2020-07-11] MEDS: ALBUTEROL 6.7GM HFA INHALER ORI SCH ×7 (04:00→19:45)
[2020-07-11 05:06] LABS: HEMATOCRIT. 40.4 % (36.0-48.0); HEMOGLOBIN. 13.9 g/dL (12.0-16.0); MEAN CORPUSCULAR HEMOGLOBIN 33.7 pg (28.0-32.0); MEAN CORPUSCULAR VOLUME 98.3 fL (81.0-99.0); MEAN PLATELET VOLUME 8.9 fl (7.4-10.4); PLATELET 97 x1000/uL (130-400); RED BLOOD CELL COUNT 4.11 mill/uL (4.2-5.4); RED CELL DISTRIBUTION WIDTH 15.1 % (11.6-14.6)
[2020-07-11 05:12] LABS: CHLORIDE 116 mEq/L (98-107)
[2020-07-11] MEDS: FAMOTIDINE 20MG TABLET PO SCH (06:04)
[2020-07-11] MEDS: METHYLPREDNISOLONE SOD SUCC 40 MG/ML VIAL IV SCH ×3 (06:04→22:24)
[2020-07-11 09:07] LABS: BG BASE EXCESS 4.7 mmol/L (-2.0-2.0); BG CARBOXYHEMOGLOBIN 0.3 % (0.5-1.5); BG DEOXYHEMOGLOBIN 11.1 % (0.0-5.0); BG FRACTION INSPIRED OXYGEN 100; BG HCO3 ACT 29.1 mmol/L (22.0-26.0); BG METHEMOGLOBIN 0.3 % (0.0-1.5); BG OXYGEN SATURATION 88.8 % (92.0-98.5); BG OXYHEMOGLOBIN 88.3 % (94.0-97.0); BG PCO2 42.3 mmHg (35.0-45.0); BG PH 7.456 (7.350-7.450); BG PO2 57.8 mmHg (75.0-100.0); BG SAMPLE SITE RIGHT RADIAL; BG TOTAL HEMOGLOBIN 13.3 g/dL (12.0-18.0); BG TOTAL RESPIRATORY RATE 30 b/min; BG VENT MODE MASK - BIPAP
[2020-07-11] MEDS: DEXT 5%/0.9% NACL 1,000 ML IV SCH ×2 (09:41→12:21)
[2020-07-11] MEDS: ASCORBIC ACID 500 MG TABLET PO SCH (09:41)
[2020-07-11] MEDS: LOSARTAN POTASSIUM 25 MG TABLET PO SCH (09:42)
[2020-07-11] MEDS: BETHANECHOL CHLORIDE 25 MG TABLET PO SCH (09:42)
[2020-07-11] MEDS: CARVEDILOL 3.125 MG TABLET PO SCH (09:43)
[2020-07-11] MEDS: ENOXAPARIN 40MG/0.4ML SYR SUBCUT SCH (09:49)
[2020-07-11] MEDS: POTASSIUM CHLORIDE 10MEQ TABLET SR PO SCH ×2 (12:21→17:00)
[2020-07-11] MEDS ORDERED: FUROSEMIDE 40MG/4ML VIAL IVP NR (13:30)
[2020-07-11 15:43] LABS: PLATELET ESTIMATE SLIGHTLY DECREASED
[2020-07-11 16:25] LABS: BG BASE EXCESS -0.2 mmol/L (-2.0-2.0); BG CARBOXYHEMOGLOBIN 0.3 % (0.5-1.5); BG DEOXYHEMOGLOBIN 17.1 % (0.0-5.0); BG HCO3 ACT 25.8 mmol/L (22.0-26.0); BG METHEMOGLOBIN 0.3 % (0.0-1.5); BG OXYGEN SATURATION 82.8 % (92.0-98.5); BG OXYHEMOGLOBIN 82.3 % (94.0-97.0); BG PCO2 47.6 mmHg (35.0-45.0); BG PH 7.352 (7.350-7.450); BG PO2 51.6 mmHg (75.0-100.0); BG SAMPLE SITE LEFT RADIAL; BG TOTAL HEMOGLOBIN 13.4 g/dL (12.0-18.0)
[2020-07-11 16:42] LABS: BG FRACTION INSPIRED OXYGEN 100
[2020-07-11 16:43] LABS: BG BILEVEL POS AIRWAY PRESSURE 15/5
[2020-07-11 16:47] LABS: BG VENT MODE BIPAP MASK
[2020-07-11] MEDS: MONTELUKAST SODIUM 10MG TABLET PO SCH (17:00)
[2020-07-11] MEDS: DIGOXIN 125MCG TABLET PO SCH (18:00)
[2020-07-11 18:08] LABS: BG BASE EXCESS 0.3 mmol/L (-2.0-2.0); BG CARBOXYHEMOGLOBIN 0.3 % (0.5-1.5); BG FRACTION INSPIRED OXYGEN 100; BG HCO3 ACT 27.2 mmol/L (22.0-26.0); BG METHEMOGLOBIN 0.4 % (0.0-1.5); BG OXYGEN SATURATION 82.9 % (92.0-98.5); BG OXYHEMOGLOBIN 82.3 % (94.0-97.0); BG PH 7.328 (7.350-7.450); BG PO2 52.6 mmHg (75.0-100.0); BG SAMPLE SITE RIGHT RADIAL; BG VENT MODE MASK - BIPAP
[2020-07-11] MEDS: DEXT 5%/0.45% NACL 1000ML 1,000 ML IV SCH (18:23)
[2020-07-11] MEDS: FUROSEMIDE 40MG/4ML VIAL IVP SCH (20:15)
[2020-07-11] MEDS ORDERED: POTASSIUM CHLORIDE INJ 40 MEQ in DEXT 5% WATER 250 ML IV NR (21:33)
[2020-07-11] MEDS: DIGOXIN 500MCG/2ML AMP IV SCH (22:23)
[2020-07-12] VITALS (95 sets, daily range): BP systolic 55–156; BP diastolic 26–85
[2020-07-12 00:20] LABS: BG BASE EXCESS 1.2 mmol/L (-2.0-2.0); BG CARBOXYHEMOGLOBIN 0.2 % (0.5-1.5); BG FRACTION INSPIRED OXYGEN 100; BG HCO3 ACT 27.4 mmol/L (22.0-26.0); BG METHEMOGLOBIN 0.2 % (0.0-1.5); BG OXYGEN SATURATION 77.9 % (92.0-98.5); BG OXYHEMOGLOBIN 77.6 % (94.0-97.0); BG PCO2 49.9 mmHg (35.0-45.0); BG PH 7.358 (7.350-7.450); BG PO2 44.8 mmHg (75.0-100.0); BG TOTAL HEMOGLOBIN 13.6 g/dL (12.0-18.0); BG VENT MODE MASK - BIPAP
[2020-07-12] MEDS: CEFEPIME 1,000 MG in DEXTROSE 5% WATER 50 ML IV SCH (01:00)
[2020-07-12] MEDS: FENTANYL CITRATE/PF 2,500 MCG in SODIUM CHLORIDE 0.9% 200 ML IV PRN ×3 (01:53→18:20)
[2020-07-12] MEDS: MIDAZOLAM HCL 100 MG in DEXT 5% WATER 80 ML IV PRN ×3 (01:53→18:19)
[2020-07-12] MEDS: IPRATROPIUM/ALBUTEROL 0.5-3(2.5)MG/3ML NEB HHN SCH ×2 (02:20→20:20)
[2020-07-12] MEDS: NOREPINEPHRINE 32 MG in DEXT 5% WATER 218 ML IV PRN (02:27)
[2020-07-12 03:04] LABS: BG BASE EXCESS -0.7 mmol/L (-2.0-2.0); BG CARBOXYHEMOGLOBIN 0.8 % (0.5-1.5); BG DEOXYHEMOGLOBIN 9.5 % (0.0-5.0); BG FRACTION INSPIRED OXYGEN 100; BG HCO3 ACT 26.6 mmol/L (22.0-26.0); BG METHEMOGLOBIN 0.5 % (0.0-1.5); BG OXYGEN SATURATION 90.4 % (92.0-98.5); BG OXYHEMOGLOBIN 89.2 % (94.0-97.0); BG PCO2 55.1 mmHg (35.0-45.0); BG PH 7.302 (7.350-7.450); BG PO2 68.9 mmHg (75.0-100.0); BG SAMPLE SITE RIGHT RADIAL; BG TOTAL HEMOGLOBIN 14.1 g/dL (12.0-18.0); BG TOTAL RESPIRATORY RATE 20 b/min; BG VENT MODE VENT - AC
[2020-07-12] MEDS: FAMOTIDINE 20MG TABLET PO SCH (05:51)
[2020-07-12] MEDS: METHYLPREDNISOLONE SOD SUCC 40 MG/ML VIAL IV SCH ×3 (06:09→22:00)
[2020-07-12 06:19] LABS: HEMATOCRIT. 38.9 % (36.0-48.0); HEMOGLOBIN. 13.1 g/dL (12.0-16.0); MEAN CORPUSCULAR HEMOGLOBIN 33.7 pg (28.0-32.0); MEAN CORPUSCULAR VOLUME 99.8 fL (81.0-99.0); MEAN PLATELET VOLUME 9.3 fl (7.4-10.4); PLATELET 69 x1000/uL (130-400); RED CELL DISTRIBUTION WIDTH 15.1 % (11.6-14.6)
[2020-07-12 06:24] LABS: CHLORIDE 119 mEq/L (98-107)
[2020-07-12] MEDS: ALBUTEROL 6.7GM HFA INHALER ORI SCH ×5 (08:21→14:02)
[2020-07-12] MEDS: FUROSEMIDE 40MG/4ML VIAL IVP SCH (09:00)
[2020-07-12] MEDS: ENOXAPARIN 40MG/0.4ML SYR SUBCUT SCH (09:18)
[2020-07-12] MEDS: PANTOPRAZOLE SODIUM 40 MG/VIAL IV SCH (11:10)
[2020-07-12 11:15] LABS: BG BASE EXCESS -3.3 mmol/L (-2.0-2.0); BG CARBOXYHEMOGLOBIN 0.3 % (0.5-1.5); BG DEOXYHEMOGLOBIN 2.1 % (0.0-5.0); BG FRACTION INSPIRED OXYGEN 100; BG HCO3 ACT 27.8 mmol/L (22.0-26.0); BG OXYGEN SATURATION 97.9 % (92.0-98.5); BG OXYHEMOGLOBIN 97.6 % (94.0-97.0); BG PCO2 85.4 mmHg (35.0-45.0); BG PH 7.131 (7.350-7.450); BG SAMPLE SITE RIGHT RADIAL; BG TOTAL HEMOGLOBIN 13.1 g/dL (12.0-18.0); BG TOTAL RESPIRATORY RATE 43 b/min; BG VENT MODE VENT - AC
[2020-07-12 11:41] LABS: PLATELET ESTIMATE DECREASED
[2020-07-12] MEDS: DEXT 5%/0.45% NACL 1000ML 1,000 ML IV SCH (13:45)
[2020-07-12] MEDS ORDERED: IPRATROPIUM/ALBUTEROL 0.5-3(2.5)MG/3ML NEB HHN PRN (14:15)
[2020-07-12 15:11] LABS: BG BASE EXCESS -3.3 mmol/L (-2.0-2.0); BG CARBOXYHEMOGLOBIN 0.2 % (0.5-1.5); BG DEOXYHEMOGLOBIN 6.8 % (0.0-5.0); BG FRACTION INSPIRED OXYGEN 100; BG HCO3 ACT 27.8 mmol/L (22.0-26.0); BG METHEMOGLOBIN 0.2 % (0.0-1.5); BG OXYGEN SATURATION 93.2 % (92.0-98.5); BG OXYHEMOGLOBIN 92.8 % (94.0-97.0); BG PH 7.133 (7.350-7.450); BG PO2 77.8 mmHg (75.0-100.0); BG SAMPLE SITE LEFT RADIAL; BG TOTAL HEMOGLOBIN 13.3 g/dL (12.0-18.0); BG TOTAL RESPIRATORY RATE 40 b/min; BG VENT MODE VENT - P/C
[2020-07-12] MEDS: DIGOXIN 500MCG/2ML AMP IV SCH (18:18)
[2020-07-13] VITALS (88 sets, daily range): BP systolic 63–137; BP diastolic 31–96
[2020-07-13] MEDS ORDERED: VANCOMYCIN 1 G PREMIX 200 ML IV NR
[2020-07-13] MEDS: NOREPINEPHRINE 32 MG in DEXT 5% WATER 218 ML IV PRN ×2 (01:00→12:19)
[2020-07-13] MEDS: FENTANYL CITRATE/PF 2,500 MCG in SODIUM CHLORIDE 0.9% 200 ML IV PRN ×2 (04:16→12:22)
[2020-07-13] MEDS: MIDAZOLAM HCL 100 MG in DEXT 5% WATER 80 ML IV PRN ×2 (05:30→18:17)
[2020-07-13] MEDS: METHYLPREDNISOLONE SOD SUCC 40 MG/ML VIAL IV SCH ×5 (05:32→23:53)
[2020-07-13 06:19] LABS: HEMOGLOBIN. 13.3 g/dL (12.0-16.0); MEAN CORPUSCULAR HEMOGLOBIN 34.3 pg (28.0-32.0); MEAN CORPUSCULAR VOLUME 100.6 fL (81.0-99.0); MEAN PLATELET VOLUME 9.6 fl (7.4-10.4); RED BLOOD CELL COUNT 3.87 mill/uL (4.2-5.4)
[2020-07-13 06:21] LABS: CHLORIDE 113 mEq/L (98-107)
[2020-07-13 06:40] LABS: PHOSPHORUS 2.8 mg/dL (2.5-4.9)
[2020-07-13 07:15] LABS: PLATELET 40 x1000/uL (130-400)
[2020-07-13] MEDS: IPRATROPIUM/ALBUTEROL 0.5-3(2.5)MG/3ML NEB HHN SCH ×4 (08:12→20:40)
[2020-07-13 09:25] LABS: NUCLEATED RED BLOOD CELLS 1 /100 WBC; PLATELET ESTIMATE MARKEDLY DECREASED
[2020-07-13] MEDS: DEXT 5%/0.45% NACL 1000ML 1,000 ML IV SCH (09:36)
[2020-07-13] MEDS: PANTOPRAZOLE SODIUM 40 MG/VIAL IV SCH (09:36)
[2020-07-13 10:41] LABS: BG CARBOXYHEMOGLOBIN 0.3 % (0.5-1.5); BG DEOXYHEMOGLOBIN 5.2 % (0.0-5.0); BG FRACTION INSPIRED OXYGEN 100; BG HCO3 ACT 23.2 mmol/L (22.0-26.0); BG METHEMOGLOBIN 0.3 % (0.0-1.5); BG OXYGEN SATURATION 94.8 % (92.0-98.5); BG OXYHEMOGLOBIN 94.2 % (94.0-97.0); BG PH 7.145 (7.350-7.450); BG PO2 78.6 mmHg (75.0-100.0); BG SAMPLE SITE RIGHT RADIAL; BG TOTAL HEMOGLOBIN 14.1 g/dL (12.0-18.0); BG TOTAL RESPIRATORY RATE 36 b/min; BG VENT MODE VENT - AC
[2020-07-13] MEDS: BLOOD SUGAR DIAGNOSTIC STRIP TEST SCH ×3 (11:58→23:54)
[2020-07-13] MEDS: CEFEPIME 1,000 MG in DEXTROSE 5% WATER 50 ML IV SCH ×2 (11:59→20:07)
[2020-07-13] MEDS: INSULIN LISPRO 100 UNITS/ML SUBCUT SCH ×3 (12:07→23:54)
[2020-07-13 12:36] LABS: BG BASE EXCESS -6.6 mmol/L (-2.0-2.0); BG CARBOXYHEMOGLOBIN 0.3 % (0.5-1.5); BG DEOXYHEMOGLOBIN 9.1 % (0.0-5.0); BG FRACTION INSPIRED OXYGEN 100; BG HCO3 ACT 20.8 mmol/L (22.0-26.0); BG METHEMOGLOBIN 0.5 % (0.0-1.5); BG OXYGEN SATURATION 90.8 % (92.0-98.5); BG OXYHEMOGLOBIN 90.1 % (94.0-97.0); BG PCO2 48.5 mmHg (35.0-45.0); BG PO2 56.5 mmHg (75.0-100.0); BG SAMPLE SITE RIGHT RADIAL; BG TOTAL HEMOGLOBIN 14.6 g/dL (12.0-18.0); BG VENT MODE VENT - AC
[2020-07-13] MEDS: VANCOMYCIN 750 MG PREMIX 150 ML IV SCH (14:00)
[2020-07-13 15:55] LABS: HEMATOCRIT. 39.5 % (36.0-48.0); HEMOGLOBIN. 13.3 g/dL (12.0-16.0); MEAN CORPUSCULAR HEMOGLOBIN 33.4 pg (28.0-32.0); RED BLOOD CELL COUNT 3.99 mill/uL (4.2-5.4); RED CELL DISTRIBUTION WIDTH 15.2 % (11.6-14.6)
[2020-07-13 16:17] LABS: MEAN PLATELET VOLUME 8.5 fl (7.4-10.4); PLATELET 14 x1000/uL (130-400)
[2020-07-13 16:26] LABS: NUCLEATED RED BLOOD CELLS 1 /100 WBC; PLATELET ESTIMATE MARKEDLY DECREASED
[2020-07-13] MEDS: DIGOXIN 500MCG/2ML AMP IV SCH (17:17)
[2020-07-13] MEDS: ASCORBIC ACID 500 MG TABLET NG SCH (20:07)
[2020-07-13] MEDS ORDERED: ERGOCALCIFEROL 8000UNITS/ML 60ML NG SCH (21:00)
[2020-07-13] MEDS: PHENYLEPHRINE 100 MG in DEXT 5% WATER 240 ML IV PRN (21:50)
[2020-07-14] VITALS (106 sets, daily range): BP systolic 84–155; BP diastolic 38–76
[2020-07-14 00:07] LABS: BG BASE EXCESS -10.1 mmol/L (-2.0-2.0); BG CARBOXYHEMOGLOBIN 0.3 % (0.5-1.5); BG DEOXYHEMOGLOBIN 10.5 % (0.0-5.0); BG FRACTION INSPIRED OXYGEN 100; BG HCO3 ACT 18.9 mmol/L (22.0-26.0); BG METHEMOGLOBIN 0.3 % (0.0-1.5); BG OXYGEN SATURATION 89.4 % (92.0-98.5); BG OXYHEMOGLOBIN 88.9 % (94.0-97.0); BG PCO2 54.5 mmHg (35.0-45.0); BG PH 7.157 (7.350-7.450); BG PO2 57.2 mmHg (75.0-100.0); BG SAMPLE SITE RIGHT RADIAL; BG TOTAL HEMOGLOBIN 12.7 g/dL (12.0-18.0); BG VENT MODE VENT - AC
[2020-07-14] MEDS: IPRATROPIUM/ALBUTEROL 0.5-3(2.5)MG/3ML NEB HHN SCH ×4 (02:20→20:15)
[2020-07-14] MEDS: PHENYLEPHRINE 100 MG in DEXT 5% WATER 240 ML IV PRN ×3 (03:57→20:04)
[2020-07-14] MEDS: NOREPINEPHRINE 32 MG in DEXT 5% WATER 218 ML IV PRN (03:58)
[2020-07-14] MEDS: FENTANYL CITRATE/PF 2,500 MCG in SODIUM CHLORIDE 0.9% 200 ML IV PRN (04:44)
[2020-07-14] MEDS: DEXT 5%/0.45% NACL 1000ML 1,000 ML IV SCH (04:44)
[2020-07-14] MEDS: METHYLPREDNISOLONE SOD SUCC 40 MG/ML VIAL IV SCH ×4 (05:02→23:27)
[2020-07-14] MEDS: BLOOD SUGAR DIAGNOSTIC STRIP TEST SCH ×3 (05:06→17:38)
[2020-07-14] MEDS: INSULIN LISPRO 100 UNITS/ML SUBCUT SCH ×3 (05:12→18:29)
[2020-07-14] MEDS: MIDAZOLAM HCL 100 MG in DEXT 5% WATER 80 ML IV PRN (05:58)
[2020-07-14] MEDS: ASCORBIC ACID 500 MG TABLET NG SCH ×2 (10:06→22:08)
[2020-07-14] MEDS: PANTOPRAZOLE SODIUM 40 MG/VIAL IV SCH (10:06)
[2020-07-14] MEDS: CEFEPIME 1,000 MG in DEXTROSE 5% WATER 50 ML IV SCH ×2 (10:06→21:51)
[2020-07-14] MEDS: VANCOMYCIN 750 MG PREMIX 150 ML IV SCH (10:06)
[2020-07-14 10:15] LABS: BG BASE EXCESS -8.3 mmol/L (-2.0-2.0); BG CARBOXYHEMOGLOBIN 0.4 % (0.5-1.5); BG DEOXYHEMOGLOBIN 11.7 % (0.0-5.0); BG FRACTION INSPIRED OXYGEN 100; BG HCO3 ACT 18.6 mmol/L (22.0-26.0); BG METHEMOGLOBIN 0.3 % (0.0-1.5); BG OXYGEN SATURATION 88.2 % (92.0-98.5); BG OXYHEMOGLOBIN 87.6 % (94.0-97.0); BG PCO2 43.5 mmHg (35.0-45.0); BG PH 7.248 (7.350-7.450); BG PO2 54.8 mmHg (75.0-100.0); BG SAMPLE SITE LEFT RADIAL; BG TOTAL HEMOGLOBIN 11.2 g/dL (12.0-18.0); BG TOTAL RESPIRATORY RATE 40 b/min; BG VENT MODE VENT - AC
[2020-07-14 10:46] LABS: HEMATOCRIT. 34.3 % (36.0-48.0); HEMOGLOBIN. 11.6 g/dL (12.0-16.0); MEAN CORPUSCULAR HEMOGLOBIN 33.7 pg (28.0-32.0); MEAN CORPUSCULAR VOLUME 99.9 fL (81.0-99.0); MEAN PLATELET VOLUME 7.6 fl (7.4-10.4); PLATELET 112 x1000/uL (130-400); RED BLOOD CELL COUNT 3.43 mill/uL (4.2-5.4); RED CELL DISTRIBUTION WIDTH 15.2 % (11.6-14.6)
[2020-07-14 12:10] LABS: DIGOXIN 4.4 ng/mL (0.9-2.0)
[2020-07-14] MEDS ORDERED: DEXT 5%/0.45% NACL 1000ML 1,000 ML IV ONE ×2 (14:00→15:00)
[2020-07-14] MEDS ORDERED: SODIUM CHLORIDE 0.9% 1,000 ML IV SCH (16:00)
[2020-07-14 19:42] LABS: HEMATOCRIT 28.2 % (36.0-48.0); HEMOGLOBIN 9.5 g/dL (12.0-16.0); PLATELET 62 x1000/uL (130-400); RED BLOOD CELL COUNT 2.79 mill/uL (4.2-5.4)
[2020-07-14 20:35] LABS: NUCLEATED RED BLOOD CELLS 5 /100 WBC; PLATELET ESTIMATE DECREASED
[2020-07-14] MEDS ORDERED: INSULIN LISPRO 100 UNITS/ML SUBCUT NR (21:30)
[2020-07-14] MEDS ORDERED: FUROSEMIDE 40MG/4ML VIAL IVP NR (21:30)
[2020-07-14] MEDS ORDERED: ALBUMIN HUMAN 25GM/100ML (25%) IV NR (23:00)
[2020-07-14 23:06] LABS: BG BASE EXCESS -16.2 mmol/L (-2.0-2.0); BG CARBOXYHEMOGLOBIN 0.3 % (0.5-1.5); BG DEOXYHEMOGLOBIN 2.9 % (0.0-5.0); BG FRACTION INSPIRED OXYGEN 100; BG METHEMOGLOBIN 0.3 % (0.0-1.5); BG OXYGEN SATURATION 97.1 % (92.0-98.5); BG OXYHEMOGLOBIN 96.5 % (94.0-97.0); BG PCO2 45.1 mmHg (35.0-45.0); BG PH 7.077 (7.350-7.450); BG PO2 112.4 mmHg (75.0-100.0); BG TOTAL HEMOGLOBIN 9.8 g/dL (12.0-18.0); BG VENT MODE PRVC
[2020-07-15] VITALS (72 sets, daily range): BP systolic 89–142; BP diastolic 30–80
[2020-07-15] MEDS: SODIUM BICARBONATE 50 MEQ in SODIUM CHLORIDE 0.45% 1,000 ML IV SCH ×4 (00:13→11:59)
[2020-07-15] MEDS: BLOOD SUGAR DIAGNOSTIC STRIP TEST SCH ×5 (00:29→23:47)
[2020-07-15 00:32] LABS: HEMATOCRIT. 25.9 % (36.0-48.0); HEMOGLOBIN. 8.9 g/dL (12.0-16.0); MEAN CORPUSCULAR HEMOGLOBIN 34.2 pg (28.0-32.0); MEAN CORPUSCULAR VOLUME 99.2 fL (81.0-99.0); MEAN PLATELET VOLUME 7.7 fl (7.4-10.4); RED BLOOD CELL COUNT 2.61 mill/uL (4.2-5.4); RED CELL DISTRIBUTION WIDTH 15.2 % (11.6-14.6)
[2020-07-15 00:37] LABS: CHLORIDE 103 mEq/L (98-107)
[2020-07-15 00:38] LABS: PLATELET 43 x1000/uL (130-400)
[2020-07-15 00:43] LABS: PHOSPHORUS 4.4 mg/dL (2.5-4.9)
[2020-07-15] MEDS ORDERED: SODIUM BICARBONATE 8.4% 1 MEQ/ML 50ML SYR IV NR (00:45)
[2020-07-15] MEDS: INSULIN LISPRO 100 UNITS/ML SUBCUT SCH ×5 (00:51→23:47)
[2020-07-15] MEDS: VANCOMYCIN 750 MG PREMIX 150 ML IV SCH (01:23)
[2020-07-15 01:31] LABS: BG BASE EXCESS -4.6 mmol/L (-2.0-2.0); BG CARBOXYHEMOGLOBIN 0.3 % (0.5-1.5); BG DEOXYHEMOGLOBIN 6.2 % (0.0-5.0); BG FRACTION INSPIRED OXYGEN 100; BG HCO3 ACT 21.6 mmol/L (22.0-26.0); BG METHEMOGLOBIN 0.3 % (0.0-1.5); BG OXYGEN SATURATION 93.8 % (92.0-98.5); BG OXYHEMOGLOBIN 93.2 % (94.0-97.0); BG PCO2 45.2 mmHg (35.0-45.0); BG PH 7.297 (7.350-7.450); BG PO2 72.9 mmHg (75.0-100.0); BG SAMPLE SITE RIGHT RADIAL; BG TOTAL HEMOGLOBIN 8.1 g/dL (12.0-18.0); BG VENT MODE PRVC
[2020-07-15 01:34] LABS: NUCLEATED RED BLOOD CELLS 5 /100 WBC; PLATELET ESTIMATE DECREASED
[2020-07-15] MEDS: IPRATROPIUM/ALBUTEROL 0.5-3(2.5)MG/3ML NEB HHN SCH ×5 (02:16→21:03)
[2020-07-15] MEDS ORDERED: MAGNESIUM 1 G PREMIX 100 ML IV NR (03:00)
[2020-07-15] MEDS: PHENYLEPHRINE 100 MG in DEXT 5% WATER 240 ML IV PRN ×3 (03:09→19:09)
[2020-07-15 03:28] LABS: CLARITY URINE TURBID (CLEAR); COLOR URINE YELLOW (YELLOW); KETONES URINE NEGATIVE (NEGATIVE); LEUKOCYTE ESTERASE URINE 2+ (NEGATIVE); NITRITE URINE NEGATIVE (NEGATIVE); OCCULT BLOOD URINE 2+ (NEGATIVE); PROTEIN URINE 1+ (NEGATIVE); SPECIFIC GRAVITY URINE 1.011 (1.005-1.030); UROBILINOGEN URINE 0.2 E.U./dL (0.2-1.0)
[2020-07-15] MEDS: METHYLPREDNISOLONE SOD SUCC 40 MG/ML VIAL IV SCH ×4 (06:14→23:56)
[2020-07-15 08:10] LABS: HEMOGLOBIN. 8.6 g/dL (12.0-16.0)
[2020-07-15 08:13] LABS: HEMATOCRIT. 24.9 % (36.0-48.0); MEAN CORPUSCULAR HEMOGLOBIN 34.2 pg (28.0-32.0); MEAN CORPUSCULAR VOLUME 99.1 fL (81.0-99.0); MEAN PLATELET VOLUME 8.4 fl (7.4-10.4); RED BLOOD CELL COUNT 2.51 mill/uL (4.2-5.4); RED CELL DISTRIBUTION WIDTH 15.2 % (11.6-14.6)
[2020-07-15 08:26] LABS: BG BASE EXCESS -8.5 mmol/L (-2.0-2.0); BG CARBOXYHEMOGLOBIN 0.1 % (0.5-1.5); BG DEOXYHEMOGLOBIN 4.5 % (0.0-5.0); BG HCO3 ACT 17.4 mmol/L (22.0-26.0); BG METHEMOGLOBIN 0.3 % (0.0-1.5); BG OXYGEN SATURATION 95.5 % (92.0-98.5); BG OXYHEMOGLOBIN 95.1 % (94.0-97.0); BG PCO2 37.3 mmHg (35.0-45.0); BG PH 7.287 (7.350-7.450); BG PO2 86.6 mmHg (75.0-100.0); BG SAMPLE SITE RIGHT RADIAL; BG TOTAL HEMOGLOBIN 8.6 g/dL (12.0-18.0); BG VENT MODE VENT - AC
[2020-07-15 08:28] LABS: PLATELET 31 x1000/uL (130-400)
[2020-07-15] MEDS: CEFEPIME 1,000 MG in DEXTROSE 5% WATER 50 ML IV SCH ×2 (09:23→21:36)
[2020-07-15] MEDS: PANTOPRAZOLE SODIUM 40 MG/VIAL IV SCH (09:23)
[2020-07-15] MEDS: FOLIC ACID/VITAMIN B COMP W-C TABLET PO SCH (09:23)
[2020-07-15] MEDS: FUROSEMIDE 100MG/10ML VIAL IVP SCH (09:23)
[2020-07-15] MEDS: ASCORBIC ACID 500 MG TABLET NG SCH ×2 (09:23→21:36)
[2020-07-15 12:20] LABS: NUCLEATED RED BLOOD CELLS 3 /100 WBC; PLATELET ESTIMATE MARKEDLY DECREASED
[2020-07-15 17:06] LABS: HLA CLASS 1 ANTIBODY Negative (Negative); IIb/IIIa ANTIBODY Negative (Negative); Ia/IIa ANTIBODY Negative (Negative); Ib/IX ANTIBODY Negative (Negative)
[2020-07-15] MEDS ORDERED: ALBUMIN HUMAN 25GM/100ML (25%) IV NR (17:15)
[2020-07-15] MEDS: FLUCONAZOLE 400MG/200ML BAG 200 ML IV SCH (17:25)
[2020-07-15] MEDS ORDERED: INSULIN GLARGINE UD 100 UNITS/ML SYR SUBCUT SCH (22:00)
[2020-07-16] VITALS (71 sets, daily range): BP systolic 84–132; BP diastolic 33–73
[2020-07-16] MEDS: IPRATROPIUM/ALBUTEROL 0.5-3(2.5)MG/3ML NEB HHN SCH ×6 (01:21→20:41)
[2020-07-16] MEDS: BLOOD SUGAR DIAGNOSTIC STRIP TEST SCH ×3 (05:09→16:53)
[2020-07-16] MEDS: DEXTROSE 50% WATER 50ML SYRINGE IV PRN ×2 (05:09→16:57)
[2020-07-16] MEDS: METHYLPREDNISOLONE SOD SUCC 40 MG/ML VIAL IV SCH ×3 (05:09→16:58)
[2020-07-16] MEDS: INSULIN LISPRO 100 UNITS/ML SUBCUT SCH ×3 (05:09→16:53)
[2020-07-16 05:37] LABS: CHLORIDE 98 mEq/L (98-107)
[2020-07-16] MEDS: PHENYLEPHRINE 100 MG in DEXT 5% WATER 240 ML IV PRN ×2 (05:37→15:55)
[2020-07-16 06:35] LABS: CREATINE KINASE 820 IU/L (26-192)
[2020-07-16] MEDS: FOLIC ACID/VITAMIN B COMP W-C TABLET PO SCH (09:00)
[2020-07-16] MEDS: CALCIUM CARBONATE 1250MG TABLET (500MG ELEMENTAL CALCIUM) PO SCH ×2 (09:00→16:58)
[2020-07-16] MEDS: PANTOPRAZOLE SODIUM 40 MG/VIAL IV SCH (09:00)
[2020-07-16] MEDS: FUROSEMIDE 100MG/10ML VIAL IVP SCH (09:00)
[2020-07-16] MEDS: ASCORBIC ACID 500 MG TABLET NG SCH ×2 (09:03→20:27)
[2020-07-16 09:32] LABS: BG BASE EXCESS -7.4 mmol/L (-2.0-2.0); BG CARBOXYHEMOGLOBIN 0.7 % (0.5-1.5); BG DEOXYHEMOGLOBIN 15.3 % (0.0-5.0); BG FRACTION INSPIRED OXYGEN 100; BG HCO3 ACT 18.4 mmol/L (22.0-26.0); BG METHEMOGLOBIN 0.1 % (0.0-1.5); BG OXYGEN SATURATION 84.6 % (92.0-98.5); BG OXYHEMOGLOBIN 83.9 % (94.0-97.0); BG PH 7.302 (7.350-7.450); BG PO2 53.4 mmHg (75.0-100.0); BG SAMPLE SITE RIGHT RADIAL; BG TOTAL HEMOGLOBIN 8.7 g/dL (12.0-18.0); BG TOTAL RESPIRATORY RATE 40 b/min; BG VENT MODE VENT - AC
[2020-07-16] MEDS: CEFEPIME 1,000 MG in DEXTROSE 5% WATER 50 ML IV SCH ×2 (10:19→20:23)
[2020-07-16] MEDS: SODIUM BICARBONATE 50 MEQ in SODIUM CHLORIDE 0.45% 1,000 ML IV SCH ×2 (12:11→17:30)
[2020-07-16] MEDS: FLUCONAZOLE 400MG/200ML BAG 200 ML IV SCH (13:41)
[2020-07-16 13:53] LABS: HEMATOCRIT. 24.1 % (36.0-48.0); HEMOGLOBIN. 8.4 g/dL (12.0-16.0); MEAN CORPUSCULAR HEMOGLOBIN 33.6 pg (28.0-32.0); MEAN PLATELET VOLUME 7.5 fl (7.4-10.4); RED BLOOD CELL COUNT 2.51 mill/uL (4.2-5.4); RED CELL DISTRIBUTION WIDTH 15.4 % (11.6-14.6)
[2020-07-16 14:32] LABS: NUCLEATED RED BLOOD CELLS 10 /100 WBC
[2020-07-16 14:33] LABS: PLATELET ESTIMATE MARKEDLY DECREASED
[2020-07-16 14:34] LABS: PLATELET 31 x1000/uL (130-400)
[2020-07-16 21:24] LABS: HEMATOCRIT. 24.6 % (36.0-48.0); HEMOGLOBIN. 8.3 g/dL (12.0-16.0); MEAN CORPUSCULAR VOLUME 100.4 fL (81.0-99.0); MEAN PLATELET VOLUME 7.6 fl (7.4-10.4); RED BLOOD CELL COUNT 2.45 mill/uL (4.2-5.4); RED CELL DISTRIBUTION WIDTH 15.7 % (11.6-14.6)
[2020-07-16 22:07] LABS: PLATELET 20 x1000/uL (130-400)
[2020-07-16 22:52] LABS: NUCLEATED RED BLOOD CELLS 5 /100 WBC
[2020-07-16 22:53] LABS: PLATELET ESTIMATE MARKEDL
[2020-07-17] VITALS (76 sets, daily range): BP systolic 47–175; BP diastolic 21–93
[2020-07-17] MEDS: SODIUM BICARBONATE 50 MEQ in SODIUM CHLORIDE 0.45% 1,000 ML IV SCH ×2
[2020-07-17] MEDS: BLOOD SUGAR DIAGNOSTIC STRIP TEST SCH ×4 (00:10→17:08)
[2020-07-17] MEDS: METHYLPREDNISOLONE SOD SUCC 40 MG/ML VIAL IV SCH ×4 (00:11→17:18)
[2020-07-17] MEDS: PHENYLEPHRINE 100 MG in DEXT 5% WATER 240 ML IV PRN ×3 (00:14→15:32)
[2020-07-17] MEDS: IPRATROPIUM/ALBUTEROL 0.5-3(2.5)MG/3ML NEB HHN SCH ×5 (00:51→21:22)
[2020-07-17] MEDS: DEXTROSE 50% WATER 50ML SYRINGE IV PRN ×3 (05:40→17:18)
[2020-07-17] MEDS: INSULIN LISPRO 100 UNITS/ML SUBCUT SCH ×4 (06:00→17:08)
[2020-07-17 06:48] LABS: CHLORIDE 94 mEq/L (98-107)
[2020-07-17 07:57] LABS: HEMATOCRIT. 26.9 % (36.0-48.0); HEMOGLOBIN. 9.1 g/dL (12.0-16.0); MEAN CORPUSCULAR HEMOGLOBIN 34.6 pg (28.0-32.0); MEAN PLATELET VOLUME 14.4 fl (7.4-10.4); RED BLOOD CELL COUNT 2.64 mill/uL (4.2-5.4); RED CELL DISTRIBUTION WIDTH 15.4 % (11.6-14.6)
[2020-07-17] MEDS: NOREPINEPHRINE 32 MG in DEXT 5% WATER 218 ML IV PRN (07:58)
[2020-07-17 08:35] LABS: PLATELET 19 x1000/uL (130-400)
[2020-07-17] MEDS: FOLIC ACID/VITAMIN B COMP W-C TABLET PO SCH (09:02)
[2020-07-17] MEDS: CEFEPIME 1,000 MG in DEXTROSE 5% WATER 50 ML IV SCH (09:02)
[2020-07-17] MEDS: PANTOPRAZOLE SODIUM 40 MG/VIAL IV SCH (09:02)
[2020-07-17] MEDS: ASCORBIC ACID 500 MG TABLET NG SCH ×2 (09:02→22:12)
[2020-07-17] MEDS: CALCIUM CARBONATE 1250MG TABLET (500MG ELEMENTAL CALCIUM) PO SCH ×2 (09:32→17:18)
[2020-07-17 09:55] LABS: BG BASE EXCESS -20.1 mmol/L (-2.0-2.0); BG CARBOXYHEMOGLOBIN 0.3 % (0.5-1.5); BG DEOXYHEMOGLOBIN 7.4 % (0.0-5.0); BG FRACTION INSPIRED OXYGEN 100; BG HCO3 ACT 9.2 mmol/L (22.0-26.0); BG METHEMOGLOBIN 0.3 % (0.0-1.5); BG OXYGEN SATURATION 92.6 % (92.0-98.5); BG PCO2 34.8 mmHg (35.0-45.0); BG SAMPLE SITE RIGHT RADIAL; BG TOTAL HEMOGLOBIN 8.6 g/dL (12.0-18.0); BG TOTAL RESPIRATORY RATE 40 b/min; BG VENT MODE VENT - AC
[2020-07-17] MEDS ORDERED: SODIUM BICARBONATE 8.4% 1 MEQ/ML 50ML SYR IV NR ×2 (10:30→16:00)
[2020-07-17] MEDS ORDERED: SODIUM CHLORIDE 3% 500ML IV SOLN IV ONE (13:00)
[2020-07-17] MEDS ORDERED: DEXTROSE 50% WATER 50ML SYRINGE IV SCH (13:15)
[2020-07-17] MEDS: FLUCONAZOLE 400MG/200ML BAG 200 ML IV SCH (13:25)
[2020-07-17 13:26] LABS: NUCLEATED RED BLOOD CELLS 4 /100 WBC; PLATELET ESTIMATE MARKEDLY DECREASED
[2020-07-17] MEDS ORDERED: INSULIN REGULAR (HUMULIN R) 300UNITS/3ML VIAL IV SCH (14:00)
[2020-07-17] MEDS ORDERED: CALCIUM CHLORIDE 1,000 MG in DEXT 5% WATER 90 ML IV SCH (14:00)
[2020-07-17] MEDS ORDERED: ALBUMIN HUMAN 25GM/100ML (25%) IV SCH (14:00)
[2020-07-17 15:44] LABS: BG BASE EXCESS -19.7 mmol/L (-2.0-2.0); BG CARBOXYHEMOGLOBIN 1.1 % (0.5-1.5); BG DEOXYHEMOGLOBIN 13.8 % (0.0-5.0); BG FRACTION INSPIRED OXYGEN 100; BG HCO3 ACT 9.6 mmol/L (22.0-26.0); BG METHEMOGLOBIN 1.3 % (0.0-1.5); BG OXYGEN SATURATION 85.9 % (92.0-98.5); BG OXYHEMOGLOBIN 83.8 % (94.0-97.0); BG PCO2 38.3 mmHg (35.0-45.0); BG PH 7.017 (7.350-7.450); BG PO2 67.5 mmHg (75.0-100.0); BG SAMPLE SITE RIGHT RADIAL; BG TOTAL HEMOGLOBIN 6.5 g/dL (12.0-18.0); BG TOTAL RESPIRATORY RATE 40 b/min; BG VENT MODE VENT - AC
[2020-07-17] MEDS ORDERED: SODIUM CHLORIDE 3% 500 ML IV NR (19:00)
[2020-07-17] MEDS ORDERED: SODIUM BICARBONATE 8.4% 1 MEQ/ML 50ML SYR IV ONE (20:00)
[2020-07-17] MEDS ORDERED: EPINEPHRINE 0.1MG/ML (1:10,000) 10ML SYR ONE (20:00)
[2020-07-17] MEDS ORDERED: CALCIUM CHLORIDE 1GM/10ML SYR IV ONE (20:00)
[2020-07-17] MEDS ORDERED: SODIUM CHLORIDE 3% 100 ML IV NR (20:30)
[2020-07-19 10:09] LABS: ANTI-DNA DOUBLE STRANDED QUANT < 1 IU/mL (0-9); RNP ANTIBODY 0.4 AI (0.0-0.9); SMITH ANTIBODY < 0.2 AI (0.0-0.9)
[2020-07-19 13:06] LABS: ANA IFA Negative (.)
[2020-07-19 19:06] LABS: ANGIOTENSION CONVERTING ENZYME 15 U/L (14-82)
[2020-07-20 13:06] LABS: ANTI-MYELOPEROXIDASE AB < 9.0 U/mL (0.0-9.0); ANTI-PROTEINASE 3 ABS < 3.5 U/mL (0.0-3.5); ATYPICAL P-ANCA <1:20 titer (Neg:<1:20); CYTOPLASMIC C-ANCA <1:20 titer (Neg:<1:20); PERINUCLEAR P-ANCA <1:20 titer (Neg:<1:20)
== END 2020-07-17 22:56 | disposition expired | DRG 870 ==
LOC: ER 10:54 → MICUSO 11:42 → 7EST 06-23 20:55 → MICUSO 07-10 21:25
PROVIDERS: ADMIT Internal Medicine Rheumatology; ATTEND Internal Medicine Rheumatology
PROC: 5A09357 Assistance with Respiratory Ventilation, Less than 24 Consecutive Hours, Continuous Positive Airway Pressure (ICD-10-PCS; 2020-07-04)
PROC: 5A1955Z Respiratory Ventilation, Greater than 96 Consecutive Hours (ICD-10-PCS; 2020-07-05)
PROC: 5A1935Z Respiratory Ventilation, Less than 24 Consecutive Hours (ICD-10-PCS; 2020-07-05)
PROC: 5A09557 Assistance with Respiratory Ventilation, Greater than 96 Consecutive Hours, Continuous Positive Airway Pressure (ICD-10-PCS; 2020-07-05)
PROC: 5A09357 Assistance with Respiratory Ventilation, Less than 24 Consecutive Hours, Continuous Positive Airway Pressure (ICD-10-PCS; 2020-07-05)
PROC: 02HV33Z Insertion of Infusion Device into Superior Vena Cava, Percutaneous Approach (ICD-10-PCS; 2020-07-10)
PROC: B548ZZA Ultrasonography of Superior Vena Cava, Guidance (ICD-10-PCS; 2020-07-10)
PROC: 0BH17EZ Insertion of Endotracheal Airway into Trachea, Via Natural or Artificial Opening (ICD-10-PCS; principal; 2020-07-12)
PROC: 30233R1 Transfusion of Nonautologous Platelets into Peripheral Vein, Percutaneous Approach (ICD-10-PCS; 2020-07-14)
PROC: 5A12012 Performance of Cardiac Output, Single, Manual (ICD-10-PCS; 2020-07-17)
DX: A41.89 Other specified sepsis (principal); U07.1 COVID-19; J12.82 Pneumonia due to coronavirus disease 2019; N17.0 Acute kidney failure with tubular necrosis; K72.00 Acute and subacute hepatic failure without coma; R65.21 Severe sepsis with septic shock; I50.23 Acute on chronic systolic (congestive) heart failure; J96.00 Acute respiratory failure, unspecified whether with hypoxia or hypercapnia; E46 Unspecified protein-calorie malnutrition; M87.9 Osteonecrosis, unspecified; I42.9 Cardiomyopathy, unspecified; E87.0 Hyperosmolality and hypernatremia; E87.1 Hypo-osmolality and hyponatremia; E87.2 Acidosis; G93.40 Encephalopathy, unspecified; B37.49 Other urogenital candidiasis; E78.5 Hyperlipidemia, unspecified; E87.6 Hypokalemia; I11.0 Hypertensive heart disease with heart failure; I25.10 Atherosclerotic heart disease of native coronary artery without angina pectoris; I27.29 Other secondary pulmonary hypertension; M19.90 Unspecified osteoarthritis, unspecified site; M35.3 Polymyalgia rheumatica; M48.061 Spinal stenosis, lumbar region without neurogenic claudication; R65.20 Severe sepsis without septic shock; Z95.1 Presence of aortocoronary bypass graft; B00.9 Herpesviral infection, unspecified; D69.6 Thrombocytopenia, unspecified; E16.2 Hypoglycemia, unspecified; Z66 Do not resuscitate; R26.2 Difficulty in walking, not elsewhere classified; T46.0X5A Adverse effect of cardiac-stimulant glycosides and drugs of similar action, initial encounter; I46.9 Cardiac arrest, cause unspecified; M85.80 Other specified disorders of bone density and structure, unspecified site; X58.XXXA Exposure to other specified factors, initial encounter; Y93.89 Activity, other specified; Y92.89 Other specified places as the place of occurrence of the external cause; Y99.8 Other external cause status; Z79.899 Other long term (current) drug therapy; Z79.1 Long term (current) use of non-steroidal anti-inflammatories (NSAID); Z68.37 Body mass index [BMI] 37.0-37.9, adult; J43.8 Other emphysema; I49.9 Cardiac arrhythmia, unspecified
CPT/HCPCS: 36415; 36600; 71045; 76937; 80048; 80053; 80061; 80162; 80202; 81003; 82164; 82270; 82375; 82550; 82728; 82805; 82962; 83036; 83520; 83615; 83735; 83880; 84100; 84134; 84145; 84439; 84484; 84550; 85025; 85027; 85379; 85651; 86022; 86140; 86147; 86160; 86225; 86235; 86256; 86850; 86900; 86945; 87070; 87106; 87107; 92950; 93005; 94003; 94640; 99285; A6261; C1725; C1893; C9113; J0692; J0696; J1160; J1200; J1450; J1650; J1815; J1940; J1956; J2250; J2370; J2920; J3010; J3370; J3475; J3480; J3490; J7030; J7040; J7042; J7050; J7060; J8540; P9034; P9047; U0003; A4315